=== PATIENT | female | born 1965 | race Caucasian/White ===

== ENCOUNTER 2024-10-01 09:55 | Outpatient (AMB) | payer OTHER, SELFPAY ==
--- NOTE | 2024-10-01 09:58 | A.OFFPC_ITS ---
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: No Accompanied by: Self / Same As Patient Allergies egg Allergy (Severe, Verified 10/01/24 10:13) GI problems sunflower seed Allergy (Severe, Verified 10/01/24 10:13) Anaphylaxis Medication List - Last Reconciled 10/01/24 by SOLOMON Mosqueda diltiazem HCl ER 120 mg PO DAILY Tobacco use date assessed: 10/01/24 Dental Screening Dental Screen Date: 10/01/24 Did you have a dental visit in the last 12 months?: Yes Did you have a dental problem in the last 6 months where you did not have access to dental care?: No Was dental information given to patient?: Patient has dentist HPI 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 Details Previous PCP: [facility] [place] 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 Last visit: about 8 years ago Last PE: same Specialist: No OBGYN: No, reports having a total hysterectomy, ovarian cysts with abnormal cells at the age on 38 Past medical history: IBS Medications: Family HX: Father copd, dm2, cad, mother pacemaker placed in 07/03 Problems: That she has multiple issues that she would like addressed Skin issues: red areas that on extremities that starts as a small red dot then p rogressed and scabbed-recurrently Patient reports that she has not gotten this looked at because she was without insurance for a while Reports going to to [facility] due to her blood pressure being elevated her blood pressure was 180/110 at home, heart rate was elevated and she was feeling dizzy for 5 weeks Reports that she finally became concerned and went to the emergency room Reports receiving 2 CTs, one with contrast and a MRI to r/o stroke She was given 4 L of iv fluids with positive and was started on Cardizem 120 mg daily for her heart rate Reports that she has not started this medication yet because her has been told her that she needed to figure out what is going on with her first before taking the medication Chronic diarrhea- Reports that she has been having this problem for over 20 years reports that this has gotten worse and she feels like she is having it everyday reports that she had a colonoscopy about 12 to 15 years and GI told her that she has IBS-reports that she was given medications that did not work and she had not follow up since Reports that she was without insurance for a long time The patient reports that she and her took a food intolerance test and results are pending. Reports that she has tried immodium without any effect, so she stopped using it (reports that this used to work in the past) Will order labs and do a stool culture Heart burn: reports having heart burn every day and it does not matter what she eats will prescribe the patient omeprazole and refer to GI [facility] Medical History (Updated 10/02/24 @ 21:00 by SOLOMON Mosqueda) Former smoker IBS (irritable bowel syndrome) Family History (Updated 10/02/24 @ 17:08 by SOLOMON Mosqueda) Father CAD (coronary artery disease) COPD (chronic obstructive pulmonary disease) Type 2 diabetes mellitus Mother Pacemaker Other Diabetes Heart failure Social History Housing: House Patient Tobacco Use Status: Former Tobacco user e-Cigarette/Vaping Use: Never Used Second Hand Smoke Exposure: No service: No Current occupational status: employed Current occupational exposures/hazards: No Cognitive needs: No Hearing needs: No Vision needs: No Questionnaire PHQ-9 Over the last 2 weeks, how often have you been bothered by any of the following problems? 1. Little interest or pleasure in doing things: not at all 2. Feeling down, depressed, or hopeless: not at all 3. Trouble falling or staying asleep, or sleeping too much: nearly every day 4. Feeling tired or having little energy: nearly every day 5. Poor appetite or overeating: nearly every day 6. Feeling bad about yourself - or that you are a failure or have let yourself or your family down: not at all 7. Trouble concentrating on things, such as reading the newspaper or watching television: more than half the days 8. Moving or speaking so slowly that other people could have noticed. Or the opposite - being so fidgety or restless that you have been moving around a lot more than usual: not at all 9. Thoughts that you would be better off or of hurting yourself in some way: not at all Total score: 11 Depression Screening Interpretation: Positive Depression Screening Done: Yes 90857 - PHQ-9 Billing: Yes Source: Developed by Drs. Daniele Bauman, Helene Vargas, Florian Shepard and colleagues, with an educational juan from [employer]. Thrive Questionnaire Date Thrive assessed: 10/01/24 I am a: Patient What is your living situation today?: I have a steady place to live Within the past 12 months, did the food you bought not last and you didn't have the money to get more?: Never true Within the past 12 months, did you worry whether your food would run out before you got money to buy more?: Never true Do you have trouble paying for medicines?: I choose not to answer this question Do you have trouble getting transportation to medical appointments?: No Do you have trouble paying your heating and electricity bill?: No Do you have trouble taking care of your child, family member or friend?: No Do you have trouble with day-to-day activities such as bathing, preparing meals, shopping, managing finances, etc.?: I choose not to answer this question Are you currently unemployed and looking for a job?: No Are you interested in more education?: No Please select the resources that you would like help with: None Currently or been in a relationship where the following occur: No concerns reported THRIVE Score: 0 AUDIT C Alcohol Use Questionnaire (AUDIT-C) 1. How often do you have a drink containing alcohol?: 2-3 times a week 2. How many drinks containing alcohol do you have on a typical day when you are drinking?: 1 or 2 3. How often do you have six or more drinks on one occasion?: Less than monthly Total Score: 4 RONAK-7 AMB Questionnaire RONAK-7 Date RONAK - 7 assessed: 10/01/24 Feeling nervous, anxious, or on edge: 3 = Nearly every day Not being able to stop or control worryin = Not at all Worrying too much about different things: 0 = Not at all Trouble relaxin = Several days Being so restless that it is hard to sit still: 0 = Not at all Becoming easily annoyed or irritable: 2 = More than half the days Feeling afraid as if something awful might happen: 0 = Not at all Total RONAK-7 score (0-4 normal; 5-9 mild; 10-14 moderate; 15-21 severe): 6 Source: Developed by Drs. Daniele Bauman, Helene Vargas, Florian Shepard and colleagues, with an educational juan from [employer]. RONAK-7 Assessment Billing RONAK-7 Assessment Tool: RONAK-7 Assessment 90673 Review of Systems Const Reports fatigue, Denies headache(s), Reports weakness and Reports weight loss Eyes Denies loss of vision ENT Denies vertigo, Denies dizziness, Denies headache(s) and Denies sore throat Card Denies chest pain, Denies leg edema, Denies lightheadedness and Reports other Resp Denies cough, Denies hemoptysis and Denies wheezing GI Denies abdominal pain, Denies melena, Denies constipation, Reports heartburn, Reports diarrhea, Reports nausea and Denies vomiting Denies urinary frequency, Denies dysuria and Denies urinary urgency Musc Denies arthralgias, Denies joint swelling, Denies numbness and Denies tingling Skin/Breast Reports lesions (small red dots progressing to scabbed over areas) Neuro Denies Abnormal speech present, Denies behavioral changes, Denies vertigo, Denies dizziness, Denies headache(s), Denies loss of vision, Denies memory loss, Denies numbness, Denies tingling and Reports weakness Psych Denies anxiety, Denies behavioral changes, Denies depression, Denies memory loss and Denies panic attacks Endo Reports fatigue Kayden/Lymph Denies easy bleeding and Denies easy bruising Aller/Immun Denies wheezing Physical exam (Primary Care) Vital Signs: Last Vital Signs Pulse 110 H 10/01/24 09:59 BP 130/86 10/01/24 09:59 Pulse Ox 96 10/01/24 09:59 Oxygen Delivery Method Room Air 10/01/24 09:59 BMI result Body Mass Index 18.2 Tobacco/Smoking Status: Tobacco use Status Tobacco use date assessed 10/01/24 10/01/24 10:09 Patient Tobacco Use Status Former Tobacco user 10/01/24 10:09 e-Cigarette/Vaping Use Never Used 10/01/24 10:09 PHQ-9: PHQ-9 Score PHQ-9: Total score 11 10/02/24 16:55 Depression Screening Interpretation: Positive Thrive Assessment: Date of Thrive Assessment Date Thrive assessed 10/01/24 10/01/24 10:09 Currently or been in a relationship where the following occur: No concerns reported Const General: healthy appearing, no acute distress, alert and awake Nutritional Appearance: well nourished Orientation/consciousness: oriented to person, oriented to place and oriented to time HENMT Ears: TM's normal bilaterally General nose exam: Normal nasal mucous membranes and turbinates present Eyes Conjunctivae: conjunctivae normal Sclerae: sclerae normal Pupils: Equal, round and reactive pupils present Neck Neck: Yes no lymphadenopathy and Yes no JVD Thyroid: Thyroid normal Carotids: no bruits Resp Effort & Inspection: normal respiratory effort and not tachypneic Auscultation: no crackles, no rales, no rhonchi and no wheezes Cardio Rate: regular rate Rhythm: regular rhythm Heart sounds: no murmurs and normal S1 and S2 GI Palpation (GI): Soft to palpation, nontender, no hepatomegaly and no splenomegaly Auscultation: normal bowel sounds General: Yes no CVA tenderness Back/Spine/Pelvis Back: no CVA tenderness Skin General skin exam: no rashes or lesions noted and dry skin Lesions: lesion noted (reddened scabbed over areas bilateral extremities ) Neuro General: oriented to person, oriented to place and oriented to time Cranial nerves: Yes Equal, round and reactive pupils present Speech: No Abnormal speech present Gait exam (Neuro): Normal gait present Motor exam (neuro): no tremor noted Extrem Right upper extremity: full ROM Left upper extremity: full ROM Right lower extremity: full ROM; no edema Left lower extremity: full ROM; no edema Psych Mental Status: mental status grossly normal Speech and movement: Normal speech and movement present Affect: normal affect Attitude: cooperative Thought process: Normal thought process present Coding Level of Care Code New Pt Level 4 (01149) Diagnoses Irritable bowel syndrome with diarrhea K58.0 Irritable bowel syndrome type: with diarrhea Heart burn R12 Racing heart beat R00.0 Skin lesion L98.9 Additional Codes RONAK-7 Assessment Billing - RONAK-7 Assessment Tool: RONAK-7 Assessment 77788 ([id number]) PHQ-9 - 67505 - PHQ-9 Billing: Yes ([id number]) Time Spent (min) 39 Assessment & Plan Assessment & Plan (1) IBS (irritable bowel syndrome): Code(s): K58.9 - Irritable bowel syndrome, unspecified Category: Medical Qualifiers: Irritable bowel syndrome type: with diarrhea Qualified Code(s): K58.0 - Irritable bowel syndrome with diarrhea Plan: The patient reports that she has been having diarrhea for like twenty years. Reports that she was worked up by GI in the past and was told that she has IBS. She was placed on medications that she said did not work and she just stopped following up. Labs and stool culture were ordered. Considering referring the patient back to GI. (2) Heart burn: Code(s): R12 - Heartburn Category: Medical Plan: The patient reports having heart burning everyday and it does not depending on what she eats. Will start the patient on omeprazole 40 mg daily and re-evaluate. The patient reports associated nausea as well, zofran 4 mg Q6H PRN. Reinforced dietary restriction. (3) Racing heart beat: Code(s): R00.0 - Tachycardia, unspecified Category: Medical Plan: The patient went to the hospital because her blood pressure and heart rate were elevated. The patient was given 4 L of iv fluids with positive effect. She was also started on Cardizem 120 mg daily that she has not taken as yet. Reports that her talked her out of taken the medication before knowing what is actually going on with her. Discussed with the patient that her heart rate is elevated today and this medication would help lowering her heart rate. She reports that she will give the medication a try. (4) Skin lesion: Code(s): L98.9 - Disorder of the skin and subcutaneous tissue, unspecified Category: Medical Plan: The patient has multiple erythematous small spots that progress into scabbed over areas. Reports that she has been dealing with this for awhile but was without health insurance. Will refer the patient to Dermatology. Orders: Orders Complete Blood Count Auto Diff 10/01/24 R00.0 - Tachycardia, unspecified, R41.89 - Other symptoms and signs involving cognitive functions and awareness, R 53.83 - Other fatigue, Z00.00 - Encounter for general adult medical examination without abnormal findings Lipid Panel 10/01/24 R00.0 - Tachycardia, unspecified, R41.89 - Other symptoms and signs involving cognitive functions and awareness, R53.83 - Other fatigue, Z00.00 - Encounter for general adult medical examination without abnormal findings TSH reflex Free T4 10/01/24 R00.0 - Tachycardia, unspecified, R41.89 - Other symptoms and signs involving cognitive functions and awareness, R53.83 - Other fatigue, Z00.00 - Encounter for general adult medical examination without abnormal findings UA CC w/rflx Micro + Cult 10/01/24 R00.0 - Tachycardia, unspecified, R41.89 - Other symptoms and signs involving cognitive functions and awareness, R53.83 - Other fatigue, Z00.00 - Encounter for general adult medical examination without abnormal findings Vitamin D 25-OH Total 10/01/24 R00.0 - Tachycardia, unspecified, R41.89 - Other symptoms and signs involving cognitive functions and awareness, R53.83 - Other fatigue, Z00.00 - Encounter for general adult medical examination without abnormal findings Vitamin B12 and Folate 10/01/24 R00.0 - Tachycardia, unspecified, R41.89 - Other symptoms and signs involving cognitive functions and awareness, R53.83 - Other fatigue, Z00.00 - Encounter for general adult medical examination without abnormal findings Hemoglobin A1c 10/01/24 R00.0 - Tachycardia, unspecified, R41.89 - Other symptoms and signs involving cognitive functions and awareness, R53.83 - Other fatigue, Z00.00 - Encounter for general adult medical examination without abnormal findings Lyme IgG/IgM w/reflex to WB 10/01/24 R00.0 - Tachycardia, unspecified, R41.89 - Other symptoms and signs involving cognitive functions and awareness, R53.83 - Other fatigue, Z00.00 - Encounter for general adult medical examination without abnormal findings Ova and Parasite 10/01/24 K52.9 - Noninfective gastroenteritis and colitis, unspecified Comprehensive [place]. Panel Fast 10/01/24 R00.0 - Tachycardia, unspecified, R41.89 - Other symptoms and signs involving cognitive functions and awareness, R53.83 - Other fatigue, Z00.00 - Encounter for general adult medical examination without abnormal findings Glucose Fasting 10/01/24 R00.0 - Tachycardia, unspecified, R41.89 - Other symptoms and signs involving cognitive functions and awareness, R53.83 - Other fatigue, Z00.00 - Encounter for general adult medical examination without abnormal findings Leukocytes Stool Qualitative 10/01/24 K52.9 - Noninfective gastroenteritis and colitis, unspecified Routine Culture w Gram Stain 10/01/24 K52.9 - Noninfective gastroenteritis and colitis, unspecified Referrals Dermatology Referral L98.9 - Disorder of the skin and subcutaneous tissue, unspecified Gastroenterology Referral K52.9 - Noninfective gastroenteritis and colitis, unspecified, K58.0 - Irritable bowel syndrome with diarrhea, R12 - Heartburn Medications: New omeprazole 40 mg PO DAILY 30 days 30 caps 3RF R12 - Heartburn ondansetron 4 mg PO Q6H 30 days PRN 60 tabs 2RF nausea and vomiting
[2024-10-01 09:59] VITALS: BP 130/86; PULSE 110; O2SAT 96; BMI 18.2
== END 2024-10-01 10:58 | disposition home or self-care (01) ==
LOC: HO.HMCH 09:56
DX: K58.0 Irritable bowel syndrome with diarrhea (principal); R12 Heartburn; R00.0 Tachycardia, unspecified; L98.9 Disorder of the skin and subcutaneous tissue, unspecified

== ENCOUNTER 2024-10-01 09:55 | Outpatient (REF) | payer OTHER, SELFPAY ==
[2024-10-01 11:49] LABS: MANUAL DIFF FLAG NO
[2024-10-01 12:28] LABS: Basophils Absolute Auto 0.1 X10*3/uL (0.0-0.2); Basophils Percent Auto 1.1 % (0-2); Eosinophils Percent Auto 0.2 % (0-4); Hematocrit 44.4 % (37.0-47.0); Imm Gran Abs Auto 0.02 X10*3/uL (0.00-0.03); Imm Gran Pct Auto 0.3 % (0.0-0.4); Lymphocytes Absolute Auto 1.1 X10*3/uL (1.2-4.9); Lymphocytes Percent Auto 16.2 % (20-40); Mean Corpuscular HGB Conc 33.8 g/dl (31.0-35.0); Mean Corpuscular Hemoglobin 31.1 pg (27.0-33.0); Mean Corpuscular Volume 92.1 fL (80.0-98.0); Mean Platelet Volume 9.6 fL (9.4-12.3); Monocytes Absolute Auto 0.6 X10*3/uL (0.1-1.2); Monocytes Percent Auto 9.7 % (2-11); Neutrophils Absolute Auto 4.8 x10*3/uL (2.0-8.3); Neutrophils Percent Auto 72.5 % (45-73); Platelet Count 284 X10*3/uL (160-400); Red Blood Count 4.82 X10*6/uL (4.20-5.50); Red Cell Distribution Width 12.3 % (11.0-16.0); White Blood Count 6.6 X10*3/uL (4.8-10.8)
[2024-10-01 12:35] LABS: Estimated Average Glucose 114 mg/dL; Hemoglobin A1c % 5.6 % (<6.0)
[2024-10-01 13:06] LABS: Alanine Aminotransferase 154 U/L (0-31); Albumin Level 4.5 g/dL (3.5-5.0); Alkaline Phosphatase 73 U/L (39-117); Anion Gap 19 (12-20); Aspartate Amino Transferase 220 U/L (5-31); Bilirubin Total 0.7 mg/dL (0.0-1.0); Blood Urea Nitrogen 5 mg/dL (9-16); Calcium 9.3 mg/dL (8.4-10.2); Carbon Dioxide 24 mmol/L (22-29); Chloride 95 mmol/L (96-108); Cholesterol 279 mg/dL (<200); Estimated Glomerular Filt Rate > 60; Glucose Fasting 95 mg/dL (60-99); HDL Cholesterol 101 mg/dL (>40); LDL Cholesterol Calculated 162 mg/dL (<100); Potassium 3.8 mmol/L (3.3-5.1); Sodium 134 mmol/L (135-145); Total Protein 8.1 g/dL (6.5-8.0); Triglycerides 81 mg/dL (<150)
[2024-10-01 13:14] LABS: TSH reflex Free T4 1.47 uIU/mL (0.32-4.0)
[2024-10-01 13:25] LABS: Folate 15.5 ng/mL (> or = 4.0); Vitamin B12 790 pg/mL (200-900)
[2024-10-01 13:37] LABS: Appearance Urine Clear; Color Urine Yellow; Glucose Urine UA Negative (Negative); Leukocyte Esterase Urine Negative (Negative); Nitrite Urine Negative (Negative); Urine Blood Negative (Negative); Urine Ketones 40 mg/dL (Negative); Urine Protein Negative (Neg-Trace)
[2024-10-01 17:26] LABS: Leukocytes Stool Qualitative NEGATIVE (NEGATIVE)
[2024-10-02 11:28] LABS: Lyme Abs Screen <0.90 index
== END 2024-10-01 09:56 | disposition home or self-care (01) ==
LOC: HO.LAB 09:55
DX: K58.0 Irritable bowel syndrome with diarrhea (principal); R12 Heartburn; R00.0 Tachycardia, unspecified; L98.9 Disorder of the skin and subcutaneous tissue, unspecified; Z00.00 Encounter for general adult medical examination without abnormal findings; R53.83 Other fatigue; R41.89 Other symptoms and signs involving cognitive functions and awareness; Z13.1 Encounter for screening for diabetes mellitus; Z13.6 Encounter for screening for cardiovascular disorders
CPT/HCPCS: 36415; 80053; 80061; 81003; 82306; 82607; 82746; 83036; 84443; 85025; 86617; 86618; 87177; 87209; 89055; 96127; 99202

== ENCOUNTER 2024-10-25 08:50 | Outpatient (REF) | payer OTHER, SELFPAY ==
--- NOTE | ~2024-10-25 | US_ITS ---
CLINICAL HISTORY: R74.8 - Abnormal levels of other serum enzymes --- Additional Notes or Special Inst ructions: Elevated liver enzymes, chronic diarrhea US abdomen complete Comparison: None Findings: The visualized pancreas is normal. The aorta and inferior vena cava are normal caliber. The appearance of the liver suggests fatty infiltration without focal lesion. There is no intrahepatic bile duct dilatation. The common duct is 6.6 mm in diameter. The gallbladder is normal. There is no sonographic Fong sign. The main portal vein is antegrade. The right kidney is 9.9 cm in length. The left kidney is 10.4 cm in length. The spleen is normal. No ascites. IMPRESSION: 1. Hepatic steatosis. This document has been electronically signed by: Tyler Mcfarland MD on 10/26/2024 08:44:49
== END 2024-10-25 08:51 | disposition home or self-care (01) ==
LOC: HO.HMGCX 08:50
DX: R74.8 Abnormal levels of other serum enzymes (principal); K52.9 Noninfective gastroenteritis and colitis, unspecified
CPT/HCPCS: 76700

== ENCOUNTER → 2024-10-25 08:52 | Outpatient (BNV) | payer OTHER, SELFPAY | PROVIDERS: Visit Provider Specialist | DX: R74.8 Abnormal levels of other serum enzymes (principal) | CPT/HCPCS: 76700 ==

== ENCOUNTER 2024-11-12 08:13 | Outpatient (AMB) | payer OTHER, SELFPAY ==
[2024-11-12 08:20] VITALS: BP 128/80; PULSE 104; O2SAT 98; BMI 18.3
--- NOTE | 2024-11-12 08:20 | A.OFFPC_ITS ---
Vital Signs 11/12/24 08:20 Height 5 ft 5 in Weight 110 lb 2 oz BMI 18.3 BP 128/80 Blood Pressure Location Lt brachial Position Sitting Pulse 104 H Pulse Source Pulse Oximeter Pulse Oximetry (%) 98 Oxygen Delivery Method Room Air Intake Visit Reasons: Annual Exam Assistant Administrator Required: No Accompanied by: Self / Same As Patient Allergies egg Allergy (Severe, Verified 11/12/24 08:21) GI problems sunflower seed Allergy (Severe, Verified 11/12/24 08:21) Anaphylaxis Tobacco use date assessed: 11/12/24 Dental Screening Dental Screen Date: 11/12/24 Did you have a dental visit in the last 12 months?: Yes Did you have a dental problem in the last 6 months where you did not have access to dental care?: No Was dental information given to patient?: Patient has dentist [facility] Medical History (Updated 10/02/24 @ 21:33 by SOLOMON Mosqueda) Former smoker IBS (irritable bowel syndrome) Family History Father CAD (coronary artery disease) COPD (chronic obstructive pulmonary disease) Type 2 diabetes mellitus Mother Pacemaker Other Diabetes Heart failure Social History Housing: House Patient Tobacco Use Status: Former Tobacco user e-Cigarette/Vaping Use: Never Used Second Hand Smoke Exposure: No service: No Current occupational status: employed Current occupational exposures/hazards: No Cognitive needs: No Hearing needs: No Vision needs: No Questionnaire PHQ-9 Over the last 2 weeks, how often have you been bothered by any of the following problems? 1. Little interest or pleasure in doing things: not at all 2. Feeling down, depressed, or hopeless: not at all 3. Trouble falling or staying asleep, or sleeping too much: not at all 4. Feeling tired or having little energy: nearly every day 5. Poor appetite or overeating: nearly every day 6. Feeling bad about yourself - or that you are a failure or have let yourself or your family down: not at all 7. Trouble concentrating on things, such as reading the newspaper or watching television: more than half the days 8. Moving or speaking so slowly that other people could have noticed. Or the opposite - being so fidgety or restless that you have been moving around a lot more than usual: not at all 9. Thoughts that you would be better off or of hurting yourself in some way: not at all Total score: 11 Depression Screening Interpretation: Positive Depression Screening Done: Yes Source: Developed by Drs. Daniele Bauman, Helene Vargas, Florian Shepard and colleagues, with an educational juan from [employer]. Thrive Questionnaire Date Thrive assessed: 11/12/24 I am a: Patient What is your living situation today?: I have a steady place to live Within the past 12 months, did the food you bought not last and you didn't have the money to get more?: Never true Within the past 12 months, did you worry whether your food would run out before you got money to buy more?: Never true Do you have trouble paying for medicines?: I choose not to answer this question Do you have trouble getting transportation to medical appointments?: No Do you have trouble paying your heating and electricity bill?: No Do you have trouble taking care of your child, family member or friend?: No Do you have trouble with day-to-day activities such as bathing, preparing meals, shopping, managing finances, etc.?: I choose not to answer this question Are you currently unemployed and looking for a job?: No Are you interested in more education?: No Please select the resources that you would like help with: None Currently or been in a relationship where the following occur: No concerns reported THRIVE Score: 0 AUDIT C Alcohol Use Questionnaire (AUDIT-C) 1. How often do you have a drink containing alcohol?: 2-3 times a week 2. How many drinks containing alcohol do you have on a typical day when you are drinking?: 1 or 2 3. How often do you have six or more drinks on one occasion?: Less than monthly Total Score: 4 RONAK-7 AMB Questionnaire RONAK-7 Date RONAK - 7 assessed: 11/12/24 Feeling nervous, anxious, or on edge: 3 = Nearly every day Not being able to stop or control worryin = Not at all Worrying too much about different things: 0 = Not at all Trouble relaxin = Several days Being so restless that it is hard to sit still: 0 = Not at all Becoming easily annoyed or irritable: 2 = More than half the days Feeling afraid as if something awful might happen: 0 = Not at all Total RONAK-7 score (0-4 normal; 5-9 mild; 10-14 moderate; 15-21 severe): 6 Source: Developed by Drs. Daniele Bauman, Helene Vargas, Florian Shepard and colleagues, with an educational juan from [employer]. RONAK-7 Assessment Billing RONAK-7 Assessment Tool: RONAK-7 Assessment 69130 Physical exam (Primary Care) Tobacco/Smoking Status: Tobacco use Status Tobacco use date assessed 10/01/24 10/01/24 10:09 Patient Tobacco Use Status Former Tobacco user 10/01/24 10:09 e-Cigarette/Vaping Use Never Used 10/01/24 10:09 Depression Screening Interpretation: Positive Thrive Assessment: Date of Thrive Assessment Date Thrive assessed 10/01/24 10/01/24 10:09 Currently or been in a relationship where the following occur: No concerns reported Coding Additional Codes RONAK-7 Assessment Billing - RONAK-7 Assessment Tool: RONAK-7 Assessment 68532 ([id number])
--- NOTE | 2024-11-12 08:28 | A.OFFPC_ITS ---
Vital Signs 11/12/24 08:20 Height 5 ft 5 in Weight 110 lb 2 oz BMI 18.3 BP 128/80 Blood Pressure Location Lt brachial Position Sitting Pulse 104 H Pulse Source Pulse Oximeter Pulse Oximetry (%) 98 Oxygen Delivery Method Room Air Intake Visit Reasons: Annual Exam Allergies egg Allergy (Severe, Verified 11/12/24 08:32) GI problems sunflower seed Allergy (Severe, Verified 11/12/24 08:32) Anaphylaxis Medication List - Last Reconciled 11/12/24 by SOLOMON Mosqueda diltiazem HCl ER 120 mg PO DAILY Tobacco use date assessed: 10/01/24 Dental Screening Dental Screen Date: 10/01/24 Did you have a dental visit in the last 12 months?: Yes Did you have a dental problem in the last 6 months where you did not have access to dental care?: No Was dental information given to patient?: Patient has dentist HPI Annual Exam HPI Details The patient is presenting for annual physical Dentist: July, up to date Eye: been a while 5/6 years, Snellen: Right: Left: Corrected vision: supposed to wear glasses due to astigmatism STI screening: Colonoscopy: due-will refer Pap Smer: PHQ-9: Flu: never had one due to egg allergy COVID: x2 moderna Tdap: 2020 Diet: removed most gluten products from diet Exercise: Active in the house chores Gluten intolerance: Patient reports not all gluten products out of her diet in all her GI symptoms subsided. Heart rate: On diltiazem, heart rate 104 today in office, blood pressure 128/80, reports coming to the office mixed her a little bit nervous. However, her condition seems to be well-controlled Hyponatremia: Sodium 134, discussed the causes with the patient. Excessive Alcohol intake, if he has any has been cutting back, we will recheck labs in the near future. Recurrent skin red patches: Referred to Derm in January GI: in January Elevated Liver enzymes: Decreasing alcohol consumption, US shows fatty liver, discussed with patient about lifestyle modification, diet and an exercise particularly we will make a difference while refraining or lowering alcohol intake and acetaminophen contents. Patient reports getting bit by 2 ticks but remove them quickly. Says she gets bit every year. We will add a Lyme panel so the patient labs to further evaluate. [facility] Medical History (Updated 05/05/25 @ 12:38 by SOLOMON Mosqueda) Former smoker IBS (irritable bowel syndrome) Family History Father CAD (coronary artery disease) COPD (chronic obstructive pulmonary disease) Type 2 diabetes mellitus Mother Pacemaker Other Diabetes Heart failure Social History Housing: House Patient Tobacco Use Status: Former Tobacco user e-Cigarette/Vaping Use: Never Used Second Hand Smoke Exposure: No service: No Current occupational status: employed Current occupational exposures/hazards: No Cognitive needs: No Hearing needs: No Vision needs: No Questionnaire PHQ-9 Over the last 2 weeks, how often have you been bothered by any of the following problems? 1. Little interest or pleasure in doing things: not at all Source: Developed by Drs. Daniele Bauman, Helene Vargas, Florian Shepard and colleagues, with an educational juan from [employer]. Thrive Questionnaire Date Thrive assessed: 10/01/24 I am a: Patient What is your living situation today?: I have a steady place to live Within the past 12 months, did the food you bought not last and you didn't have the money to get more?: Never true Within the past 12 months, did you worry whether your food would run out before you got money to buy more?: Never true Do you have trouble paying for medicines?: I choose not to answer this question Do you have trouble getting transportation to medical appointments?: No Do you have trouble paying your heating and electricity bill?: No Do you have trouble taking care of your child, family member or friend?: No Do you have trouble with day-to-day activities such as bathing, preparing meals, shopping, managing finances, etc.?: I choose not to answer this question Are you currently unemployed and looking for a job?: No Are you interested in more education?: No Please select the resources that you would like help with: None Currently or been in a relationship where the following occur: No concerns reported THRIVE Score: 0 RONAK-7 AMB Questionnaire RONAK-7 Date RONAK - 7 assessed: 10/01/24 Source: Developed by Helene Muñoz, Florian Shepard and colleagues, with an educational juan from [employer]. Review of Systems Const Denies headache(s) Eyes Denies loss of vision ENT Denies vertigo, Denies dizziness, Denies headache(s) and Denies sore throat Card Denies chest pain, Denies leg edema and Denies lightheadedness Resp Denies cough, Denies hemoptysis and Denies wheezing GI Denies abdominal pain, Denies melena, Denies constipation, Denies diarrhea and Denies vomiting Denies urinary frequency, Denies dysuria and Denies urinary urgency Musc Denies arthralgias, Denies joint swelling, Denies numbness and Denies tingling Neuro Denies Abnormal speech present, Denies behavioral changes, Denies vertigo, Denies dizziness, Denies headache(s), Denies loss of vision, Denies memory loss, Denies numbness and Denies tingling Psych Denies anxiety, Denies behavioral changes, Denies depression, Denies memory loss and Denies panic attacks Kayden/Lymph Denies easy bleeding and Denies easy bruising Aller/Immun Denies wheezing Physical exam (Primary Care) Vital Signs: Last Vital Signs Pulse 104 H 11/12/24 08:20 BP 128/80 11/12/24 08:20 Pulse Ox 98 11/12/24 08:20 Oxygen Delivery Method Room Air 11/12/24 08:20 BMI result Body Mass Index 18.3 Tobacco/Smoking Status: Tobacco use Status Tobacco use date assessed 10/01/24 11/12/24 08:35 Patient Tobacco Use Status Former Tobacco user 11/12/24 08:35 e-Cigarette/Vaping Use Never Used 11/12/24 08:35 PHQ-9: PHQ-9 Score PHQ-9: Total score 11 11/12/24 08:29 Thrive Assessment: Date of Thrive Assessment Date Thrive assessed 10/01/24 11/12/24 08:35 Currently or been in a relationship where the following occur: No concerns reported Const General: healthy appearing, no acute distress, alert and awake Nutritional Appearance: well nourished Orientation/consciousness: oriented to person, oriented to place and oriented to time HENMT Ears: TM's normal bilaterally General nose exam: Normal nasal mucous membranes and turbinates present Eyes Conjunctivae: conjunctivae normal Sclerae: sclerae normal Pupils: Equal, round and reactive pupils present Neck Neck: Yes no lymphadenopathy and Yes no JVD Thyroid: Thyroid normal Carotids: no bruits Resp Effort & Inspection: normal respiratory effort and not tachypneic Auscultation: no crackles, no rales, no rhonchi and no wheezes Cardio Rate: regular rate Rhythm: regular rhythm Heart sounds: no murmurs and normal S1 and S2 GI Palpation (GI): Soft to palpation, nontender, no hepatomegaly and no splenomegaly Auscultation: normal bowel sounds General: Yes no CVA tenderness Back/Spine/Pelvis Back: no CVA tenderness Skin General skin exam: no rashes or lesions noted and dry skin Neuro General: oriented to person, oriented to place and oriented to time Cranial nerves: Yes Equal, round and reactive pupils present Speech: No Abnormal speech present Gait exam (Neuro): Normal gait present Motor exam (neuro): no tremor noted Extrem Right upper extremity: full ROM Left upper extremity: full ROM Right lower extremity: full ROM; no edema Left lower extremity: full ROM; no edema Psych Mental Status: mental status grossly normal Speech and movement: Normal speech and movement present Affect: normal affect Attitude: cooperative Thought process: Normal thought process present Results Reviewed Results Reviewed: Laboratory Tests 10/01/24 10/01/24 11:42 11:47 WBC 6.6 RBC 4.82 Hgb 15.0 Hct 44.4 MCV 92.1 MCH 31.1 RDW 12.3 Plt Count 284 Sodium 134 L Potassium 3.8 Chloride 95 L Carbon Dioxide 24 Anion Gap 19 BUN 5 L Creatinine 0.69 Estimated GFR > 60 Fasting Glucose 95 Hemoglobin A1c % 5.6 AST 220 H ALT 154 H Alkaline Phosphatase 73 Total Protein 8.1 H Cholesterol 279 H LDL Cholesterol, Calc 162 H HDL Cholesterol 101 Vitamin B12 790 25-OH Vitamin D Total 123.0 Folate 15.5 TSH 1.47 Urine Color Yellow Urine Appearance Clear Urine pH 6.0 Ur Specific [place] 1.010 Urine Protein Negative Urine Glucose (UA) Negative Urine Ketones 40 Urine Blood Negative Urine Nitrite Negative Ur Leukocyte Esterase Negative Coding Level of Care Code Est Pt Prev Care 40-64y(15176) Diagnoses Annual physical exam Z00.00 Elevated liver enzymes R74.8 Chronic diarrhea K52.9 Irritable bowel syndrome with diarrhea K58.0 Irritable bowel syndrome type: with diarrhea Skin lesion L98.9 Heart burn R12 Racing heart beat R00.0 Brain fog R41.89 Fatigue, unspecified type R53.83 Fatigue type: unspecified Fatty liver K76.0 Time Spent (min) 39 Assessment & Plan Assessment & Plan (1) Annual physical exam: Code(s): Z00.00 - Encounter for general adult medical examination without abnormal findings Category: Medical (2) Elevated liver enzymes: Code(s): R74.8 - Abnormal levels of other serum enzymes Category: Medical (3) Chronic diarrhea: Code(s): K52.9 - Noninfective gastroenteritis and colitis, unspecified Category: Medical (4) IBS (irritable bowel syndrome): Code(s): K58.9 - Irritable bowel syndrome, unspecified Category: Medical Qualifiers: Irritable bowel syndrome type: with diarrhea Qualified Code(s): K58.0 - Irritable bowel syndrome with diarrhea (5) Skin lesion: Code(s): L98.9 - Disorder of the skin and subcutaneous tissue, unspecified Category: Medical (6) Heart burn: Code(s): R12 - Heartburn Category: Medical (7) Racing heart beat: Code(s): R00.0 - Tachycardia, unspecified Category: Medical (8) Brain fog: Code(s): R41.89 - Other symptoms and signs involving cognitive functions and awareness Category: Medical (9) Fatigue: Code(s): R53.83 - Other fatigue Category: Medical Qualifiers: Fatigue type: unspecified Qualified Code(s): R53.83 - Other fatigue (10) Fatty liver: Code(s): K76.0 - Fatty (change of) liver, not elsewhere classified Category: Medical Plan I provided the patient a comprehensive management plan focusing on her chronic medical issues and health maintenance needs. She should continue her gluten-free diet due to significant symptom reduction and practice moderation in alcohol consumption to support liver health. Routine monitoring of her liver enzymes and cholesterol will be conducted, with retesting scheduled for three months out to observe the impact of her lifestyle adjustments. Her frequent involvement with ticks needs ongoing vigilance despite the removals being under 24 hours. We will add a lyme panel to her upcoming blood work. For preventative screening, She had a Colonoscopy over 10 years ago, we will refer to GI. Eye exam recommended due to history of astigmatic concerns. She has never taken the flu vaccine due to her allergy to eggs even though the new recommendations approved flu vaccination for people with egg allergy, but she has completed her initial COVID vaccine doses. 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 Encouraged 30 minutes of uninterrupted cardio at least 3 times/week, aligning with her preferences for maintaining functionality. I recommended continued Debrox use as needed if dizziness recurs, based on symptom relief noted previously after using the debrox to clean her ears. Patient has upcoming appointment with Dermatology for recurrent skin lesions. She also has a appointment with GI for her previous stomach issues. Liver enzymes and high cholesterol high in the list of concerns with the patient. Ultrasound was completed recently that showed a fatty liver. Discussed with the patient about cutting down or refraining from alcohol intake. Patient reports that she has been doing well with this and only had 2 drinks on holiday. Reports that she will continue adjusting her diet to improve her cholesterol. Explained to patient that lower inner cholesterol will also improve her liver function. Patient was informed and verbally consented to the use of an ambient scribe for clinic note documentation during this visit. Orders: Orders Complete Blood Count Auto Diff 1 Month K52.9 - Noninfective gastroenteritis and colitis, unspecified, K58.0 - Irritable bowel syndrome with diarrhea, R53.83 - Other fatigue, R74.8 - Abnormal levels of other serum enzymes Lipid Panel 1 Month K52.9 - Noninfective gastroenteritis and colitis, unspecified, K58.0 - Irritable bowel syndrome with diarrhea, R53.83 - Other fatigue, R74.8 - Abnormal levels of other serum enzymes UA CC w/rflx Micro + Cult 1 Month K52.9 - Noninfective gastroenteritis and colitis, unspecified, K58.0 - Irritable bowel syndrome with diarrhea, R53.83 - Other fatigue, R74.8 - Abnormal levels of other serum enzymes Vitamin D 25-OH Total 1 Month K52.9 - Noninfective gastroenteritis and colitis, unspecified, K58.0 - Irritable bowel syndrome with diarrhea, R53.83 - Other fatigue, R74.8 - Abnormal levels of other serum enzymes TSH reflex Free T4 1 Month K52.9 - Noninfective gastroenteritis and colitis, unspecified, K58.0 - Irritable bowel syndrome with diarrhea, R53.83 - Other fatigue, R74.8 - Abnormal levels of other serum enzymes Glucose Fasting 1 Month K52.9 - Noninfective gastroenteritis and colitis, unspecified, K58.0 - Irritable bowel syndrome with diarrhea, R53.83 - Other fatigue, R74.8 - Abnormal levels of other serum enzymes Liver Panel 1 Month R74.8 - Abnormal levels of other serum enzymes Lyme IgG/IgM w/reflex to WB 1 Month R53.83 - Other fatigue, W57.XXXA - Bitten or stung by nonvenomous insect and other nonvenomous arthropods, initial encounter Referrals Gastroenterology Referral Z12.11 - Encounter for screening for malignant neoplasm of colon, Z12.12 - Encounter for screening for malignant neoplasm of rectum Patient Instructions: Patient to follow up in 3 months, complete ordered labs prior to appointment
== END 2024-11-12 09:02 | disposition home or self-care (01) ==
LOC: HO.HMCH 08:14
DX: Z00.00 Encounter for general adult medical examination without abnormal findings (principal); R74.8 Abnormal levels of other serum enzymes; K58.0 Irritable bowel syndrome with diarrhea; L98.9 Disorder of the skin and subcutaneous tissue, unspecified; R12 Heartburn; R00.0 Tachycardia, unspecified; R41.89 Other symptoms and signs involving cognitive functions and awareness; R53.83 Other fatigue; K76.0 Fatty (change of) liver, not elsewhere classified

== ENCOUNTER → 2024-11-12 08:13 | Outpatient (BNVA) | payer OTHER, SELFPAY | DX: Z00.00 Encounter for general adult medical examination without abnormal findings (principal); R74.8 Abnormal levels of other serum enzymes; K58.0 Irritable bowel syndrome with diarrhea; L98.9 Disorder of the skin and subcutaneous tissue, unspecified; R12 Heartburn; R00.0 Tachycardia, unspecified | CPT/HCPCS: 99396 ==

== ENCOUNTER 2025-01-29 10:03 | Outpatient (AMB) | payer OTHER, SELFPAY ==
--- NOTE | 2025-01-29 10:05 | A.OFFVIS_ITS ---
Vital Signs 01/29/25 10:16 Height 5 ft 5 in Weight 103 lb BMI 17.1 BP 140/100 H Blood Pressure Location Lt brachial Position Sitting Pulse 120 H Pulse Source Pulse Oximeter Pulse Oximetry (%) 100 Oxygen Delivery Method Room Air Intake Visit Reasons: IBS Noninf gastroenteritis & colitis heartburn Intake Note: New pt for initial eval of IBS + GERD CC; C.O. concern for possible celiac. Pt has cut out gluten from her diet over the last few weeks and has noticed a drastic improvement. Pt also reports having fairly significant, unintentional weight loss. Last colo + egd over 10 years ago. Puller Through Required: No Accompanied by: Self / Same As Patient Allergies egg Allergy (Severe, Verified 01/29/25 10:06) GI problems sunflower seed Allergy (Severe, Verified 01/29/25 10:06) Anaphylaxis HPI HPI IBS Noninf gastroenteritis & colitis heartburn: Details: 59 year old? female with past medical history of fatty liver, IBS, chronic diarrhea is here today for pre colonoscopy screening.? Patient was sent to us by her PCP.? Last colonoscopy over 10 years ago. Patient reports long history of IBS with predominantly diarrhea postprandially and abdominal pain. Patient reports that she was suffering in the very beginning of this year where she was seen in the ED. Patient then did testing where she was given a list of food that she can have and food that she must avoid. Since then patient has been doing much better. She is avoiding gluten completely. If she has even small amount of gluten she will have abdominal pain and loose stools.? ? Denies any personal or family history of gastrointestinal disease, colon polyps, or CRC.? Denies history of difficulty with sedation or anesthesia in the past.? Negative for history of sleep apnea.? Denies any history of cardiac, renal, pulmonary, or hepatic disease.?? No history of infectious? diseases like hepatitis A, B, C, HIV or tuberculosis.? Patient is not on any anticoagulation [facility] Medical History (Updated 01/29/25 @ 10:12 by JONO Villavicencio) Former smoker IBS (irritable bowel syndrome) Surgical History (Updated 01/29/25 @ 10:12 by JONO Villavicencio) Normal esophagogastroduodenoscopy (EGD) H/O colonoscopy Family History Father CAD (coronary artery disease) COPD (chronic obstructive pulmonary disease) Type 2 diabetes mellitus Mother Pacemaker Other Diabetes Heart failure Social History Housing: House Patient Tobacco Use Status: Former Tobacco user e-Cigarette/Vaping Use: Never Used Second Hand Smoke Exposure: No service: No Current occupational status: employed Current occupational exposures/hazards: No Cognitive needs: No Hearing needs: No Vision needs: No Review of Systems Const Denies weight gain and Denies weight loss ENT Reports no additional complaints, Denies dysphagia and Denies odynophagia Card Reports no additional complaints Resp Reports no additional complaints GI Reports abdominal pain, Denies belching, Denies melena, Reports bloating, Denies change in bowel habits, Denies dysphagia, Denies excessive flatus, Denies dyspepsia, Denies heartburn, Reports diarrhea, Denies loose stools, Denies obie sea, Denies odynophagia and Denies vomiting Reports no additional complaints Musc Reports no additional complaints Neuro Reports no additional complaints Psych Reports no additional complaints Endo Reports no additional complaints Physical Exam Vital Signs: Last Vital Signs Pulse 120 H 01/29/25 10:16 BP 140/100 H 01/29/25 10:16 Pulse Ox 100 01/29/25 10:16 Oxygen Delivery Method Room Air 01/29/25 10:16 BMI result Body Mass Index 17.1 Const General: healthy appearing, no acute distress and well developed Nutritional Appearance: well nourished Orientation/consciousness: patient oriented x3 Resp Effort & Inspection: normal respiratory effort, able to speak in complete sentences, no tracheal deviation and symmetric chest movement Auscultation: clear to auscultation bilaterally Cardio Rate: regular rate GI Inspection: Yes normal to inspection and No distended Palpation (GI): Soft to palpation, not firm, nontender and No hepatosplenomegaly present Auscultation: normal bowel sounds General: Yes no CVA tenderness Back/Spine/Pelvis Back: no CVA tenderness Skin General skin exam: elasticity normal, turgor normal and dry skin Neuro General: patient oriented x3 Psych Appearance: grossly normal Mental Status: mental status grossly normal Assessment & Plan Assessment & Plan (1) Elevated liver enzymes: Code(s): R74.8 - Abnormal levels of other serum enzymes Category: Medical (2) Chronic diarrhea: Code(s): K52.9 - Noninfective gastroenteritis and colitis, unspecified Category: Medical (3) IBS (irritable bowel syndrome): Code(s): K58.9 - Irritable bowel syndrome, unspecified Category: Medical Qualifiers: Irritable bowel syndrome type: with diarrhea Qualified Code(s): K58.0 - Irritable bowel syndrome with diarrhea (4) Encounter for colorectal cancer screening: Code(s): Z12.11 - Encounter for screening for malignant neoplasm of colon; Z12.12 - Encounter for screening for malignant neoplasm of rectum Category: Medical Plan Patient denies any cardiac or respiratory symptoms.? Patient will continue low FODMAP diet. Will continue avoiding gluten and lactose as she has in the past. Will check transglutaminase, fecal calprotectin to rule out IBD, vitamin-D, B12, folate, thyroid and liver panel. Denies any issues with anesthesia in the past.? Denies any history of sleep apnea.? No history infectious diseases in the past or present.? Not on any anticoagulation therapy.? No family or personal history of colon cancer or polyps.? Patient denies melena, hematochezia, unintentional weight loss or ribbon like stools.? Discussed at length the pre- procedure,? prep, diet & medications as well as what to expect prior, during and after the procedure.?? Stressed the importance of good bowel prep.? Recommended the use of Vaseline or Calmoseptine OTC & baby wipes with bowel movements to promote comfort.? ?Patient verbalizes understanding and agrees to plan of care.? She was given the opportunity to ask questions and all questions answered.? We will see her after the procedure.? Orders: Orders Transglutaminase Ab IgG Today R10.9 - Unspecified abdominal pain Transglutaminase IgA Today R10.9 - Unspecified abdominal pain Calprotectin, Fecal Today R15.9 - Full incontinence of feces Lipase Today R10.9 - Unspecified abdominal pain Vitamin D 25-OH (D2 and D3) Today E55.9 - Vitamin D deficiency, unspecified Vitamin B12 and Folate Today R19.7 - Diarrhea, unspecified TSH reflex Free T4 Today K59.00 - Constipation, unspecified Liver Panel Today R74.01 - Elevation of levels of liver transaminase levels Medications: New bisacodyl (Dulcolax (bisacodyl)) take 4 tabs at noon the day before your colonoscopy 20 mg (4 x 5 mg) PO ONCE 4 tabs 0RF constipation 1 day Z12.11 - Encounter for screening for malignant neoplasm of colon polyethylene glycol 3350 (Miralax) As directed by gastroenterology department at [facility] 238 grams PO ONCE 238 grams 0RF Z12.11 - Encounter for screening for malignant neoplasm of colon Coding Level of Care Code New Pt Level 4 (21552) Diagnoses Elevated liver enzymes R74.8 Chronic diarrhea K52.9 Irritable bowel syndrome with diarrhea K58.0 Irritable bowel syndrome type: with diarrhea Encounter for colorectal cancer screening Z12.11; Z12.12 Time Spent (min) 50 Comment 35 minutes spent with patient and additional 15 minutes spent reviewing her records
[2025-01-29 10:16] VITALS: BP 140/100; PULSE 120; O2SAT 100; BMI 17.1
== END 2025-01-29 11:18 | disposition home or self-care (01) ==
LOC: HO.HGI 10:04
PROVIDERS: Visit Provider Nurse Practitioner Family
DX: R74.01 Elevation of levels of liver transaminase levels (principal); K52.9 Noninfective gastroenteritis and colitis, unspecified
CPT/HCPCS: 99204

== ENCOUNTER → 2025-01-29 10:03 | Outpatient (BNVA) | payer OTHER, SELFPAY | PROVIDERS: Visit Provider Nurse Practitioner Family | DX: Z12.11 Encounter for screening for malignant neoplasm of colon (principal); Z12.12 Encounter for screening for malignant neoplasm of rectum; K58.0 Irritable bowel syndrome with diarrhea; R74.8 Abnormal levels of other serum enzymes | CPT/HCPCS: 99202 ==

== ENCOUNTER 2025-02-13 08:19 | Outpatient (AMB) | payer OTHER, SELFPAY ==
--- NOTE | 2025-02-13 08:30 | MHC.PC.OV ---
Vital Signs 02/13/25 08:42 Height 5 ft 5 in Weight 107 lb 8 oz BMI 17.9 BP 120/60 Blood Pressure Location Lt brachial Position Sitting Pulse 89 Pulse Source Pulse Oximeter Temp 97.3 F Temp Source Temporal Artery Scan Pulse Oximetry (%) 97 Oxygen Delivery Method Room Air Intake Visit Reasons: elevated liver enzymes/HLD Intake Note: Patient is here to follow up on HLD, Elevated liver enzmes. Manager Sales And Marketing: Not Required per policy Accompanied by: Self / Same As Patient Allergies egg Allergy (Severe, Verified 02/13/25 08:58) GI problems sunflower seed Allergy (Severe, Verified 02/13/25 08:58) Anaphylaxis Medication List - Last Reconciled 02/13/25 by SOLOMON Mosqueda bisacodyl (Dulcolax (bisacodyl)) 20 mg (4 x 5 mg) PO ONCE 1 day diltiazem HCl ER 120 mg PO DAILY polyethylene glycol 3350 (Miralax) 238 grams PO ONCE Tobacco use date assessed: 02/13/25 Dental Screening Dental Screen Date: 10/01/24 HPI elevated liver enzymes/HLD HPI Details The patient is a 59 year old female presenting for follow up appointment. Patient had blood work done on 10/01/2024. Showed mild hyponatremia with sodium at 01:34, liver enzymes elevated AST 220, ALT 154. The patient had an abdominal ultrasound on :2024 that showed hepatic steatosis. The patient total cholesterol was 279, LDL 162, HDL 101. She was encouraged to make dietary changes. Labs were ordered for the patient to repeat for this follow up appointment. The patient has not completed a repeated labs as yet. The patient was seen by GI on 01/29/25. Her last colonoscopy was over 10 years ago. She has a history IBS, particularly chronic diarrhea. She had made dietary changes and had seen significant improvements. Continue FODMAP diet. Patient we will complete labs as soon as she can. Denies chest pain, SOB, heart palpitation or dizziness. Denies abdominal pain or change in bowel habits. Reports that she had heartburn about twice due to eating from the food truck. Denies any urinary symptoms. [facility] Medical History (Updated 02/13/25 @ 09:04 by SOLOMON Mosqueda) Racing heart beat Former smoker IBS (irritable bowel syndrome) Surgical History Normal esophagogastroduodenoscopy (EGD) H/O colonoscopy Family History Father CAD (coronary artery disease) COPD (chronic obstructive pulmonary disease) Type 2 diabetes mellitus Mother Pacemaker Other Diabetes Heart failure Social History Housing: House Alcohol intake: current Alcohol intake frequency: a few times a week Patient Tobacco Use Status: Former Tobacco user e-Cigarette/Vaping Use: Never Used Second Hand Smoke Exposure: Yes service: No Current occupational status: employed Current occupational exposures/hazards: No Cognitive needs: No Hearing needs: No Vision needs: No Questionnaire PHQ-9 Over the last 2 weeks, how often have you been bothered by any of the following problems? 1. Little interest or pleasure in doing things: not at all 2. Feeling down, depressed, or hopeless: not at all Source: Developed by Drs. Daniele Bauman, Helene Vargas, Florian Shepard and colleagues, with an educational juan from [employer]. Thrive Questionnaire Date Thrive assessed: 10/01/24 I am a: Patient What is your living situation today?: I have a steady place to live Within the past 12 months, did the food you bought not last and you didn't have the money to get more?: Never true Within the past 12 months, did you worry whether your food would run out before you got money to buy more?: Never true Do you have trouble paying for medicines?: I choose not to answer this question Do you have trouble getting transportation to medical appointments?: No Do you have trouble paying your heating and electricity bill?: No Do you have trouble taking care of your child, family member or friend?: No Do you have trouble with day-to-day activities such as bathing, preparing meals, shopping, managing finances, etc.?: I choose not to answer this question Are you currently unemployed and looking for a job?: No Are you interested in more education?: No Please select the resources that you would like help with: None Currently or been in a relationship where the following occur: No concerns reported THRIVE Score: 0 RONAK-7 AMB Questionnaire RONAK-7 Date RONAK - 7 assessed: 10/01/24 Source: Developed by Drs. Daniele Bauman, Helene Vargas, Florian Shepard and colleagues, with an educational juan from [employer]. Review of Systems Const Denies body aches, Denies chills, Denies fever(s), Denies headache(s) and Denies poor appetite Eyes Reports no additional complaints ENT Denies dysphagia, Denies dizziness, Denies headache(s) and Denies odynophagia Card Denies chest pain, Denies syncope, Denies edema, Denies irregular heart rhythm, Denies lightheadedness and Denies dyspnea Resp Denies cough and Denies dyspnea GI Denies abdominal pain, Denies constipation, Denies dysphagia, Reports heartburn (2 times since last visit due to dietary choices), Denies diarrhea, Denies nausea, Denies odynophagia and Denies vomiting Reports no additional complaints Musc Reports no additional complaints and Denies abnormal gait Skin/Breast Reports system reviewed and no additional complaints, except as documented Neuro Denies abnormal gait, Denies dizziness, Denies syncope and Denies headache(s) Psych Reports no additional complaints Physical exam (Primary Care) Vital Signs: Last Vital Signs Temp 97.3 F 02/13/25 08:42 Pulse 89 02/13/25 08:42 BP 120/60 02/13/25 08:42 Pulse Ox 97 02/13/25 08:42 Oxygen Delivery Method Room Air 02/13/25 08:42 BMI result Body Mass Index 17.9 Tobacco/Smoking Status: Tobacco use Status Tobacco use date assessed 02/13/25 02/13/25 08:44 Patient Tobacco Use Status Former Tobacco user 02/13/25 08:47 e-Cigarette/Vaping Use Never Used 02/13/25 08:47 Thrive Assessment: Date of Thrive Assessment Date Thrive assessed 10/01/24 02/13/25 08:30 Currently or been in a relationship where the following occur: No concerns reported Const General: cooperative, healthy appearing, comfortable and no acute distress Orientation/consciousness: patient oriented x3 HENMT Head: Yes normocephalic Ears: hearing grossly normal bilaterally General nose exam: Normal external nose present Eyes General: appearance normal, both eyes and all related structures Conjunctivae: conjunctivae normal Neck Neck: Yes full ROM and Yes no lymphadenopathy Resp Effort & Inspection: normal respiratory effort Auscultation: clear to auscultation bilaterally, no crackles, no rales, no rhonchi and no wheezes Cardio Rate: regular rate Rhythm: regular rhythm Heart sounds: S1 normal heart sound present, S2 normal heart sound present and no murmurs GI Palpation (GI): Soft to palpation and nontender Auscultation: normal bowel sounds General: Yes no CVA tenderness Back/Spine/Pelvis Back: no CVA tenderness Skin General skin exam: no rashes or lesions noted Neuro General: patient oriented x3 Gait exam (Neuro): Normal gait present Extrem General: Yes normal to inspection, Yes full ROM and No edema Psych Affect: normal affect Attitude: cooperative Insight: Good insight present (Psych) Judgement: Good judgement present (Psych) Coding Level of Care Code Est Pt Level 3 (83024) Diagnoses Heart burn R12 Elevated liver enzymes R74.8 Fatty liver K76.0 Chronic diarrhea K52.9 Irritable bowel syndrome with diarrhea K58.0 Irritable bowel syndrome type: with diarrhea Racing heart beat R00.0 Time Spent (min) 36 Assessment & Plan Assessment & Plan (1) Heart burn: Code(s): R12 - Heartburn Category: Medical Plan: Had 2 episodes since last visit. Reports that she ate from a food truck that claimed that it was gluten free. Reinforced dietary restriction Continue omeprazole OTC (2) Elevated liver enzymes: Code(s): R74.8 - Abnormal levels of other serum enzymes Category: Medical Plan: Elevated liver enzymes Avoid alcohol or Tylenol containing drugs Encouraged a low-fat diet (3) Fatty liver: Code(s): K76.0 - Fatty (change of) liver, not elsewhere classified Category: Medical Plan: Same as above (4) Chronic diarrhea: Code(s): K52.9 - Noninfective gastroenteritis and colitis, unspecified Category: Medical Plan: Improved. Patient made dietary changes and has been doing much better (5) IBS (irritable bowel syndrome): Code(s): K58.9 - Irritable bowel syndrome, unspecified Category: Medical Qualifiers: Irritable bowel syndrome type: with diarrhea Qualified Code(s): K58.0 - Irritable bowel syndrome with diarrhea Plan: Continue FODMAP diet Follow up with GI as scheduled (6) Racing heart beat: Code(s): R00.0 - Tachycardia, unspecified Category: Medical Plan: Stable. Heart rate 89 in office today Continue diltiazem HCI ER 120 mg daily
[2025-02-13 08:42] VITALS: BP 120/60; PULSE 89; TEMP 36.3; O2SAT 97; BMI 17.9
== END 2025-02-13 08:59 | disposition home or self-care (01) ==
LOC: HO.HMCH 08:20
DX: R12 Heartburn (principal); R74.8 Abnormal levels of other serum enzymes; K58.0 Irritable bowel syndrome with diarrhea; R00.0 Tachycardia, unspecified

== ENCOUNTER → 2025-02-13 08:19 | Outpatient (BNVA) | payer OTHER, SELFPAY | DX: E87.1 Hypo-osmolality and hyponatremia (principal); K76.0 Fatty (change of) liver, not elsewhere classified; R12 Heartburn; R74.8 Abnormal levels of other serum enzymes; K58.0 Irritable bowel syndrome with diarrhea; R00.0 Tachycardia, unspecified | CPT/HCPCS: 99212 ==

== ENCOUNTER 2025-03-21 08:35 | Day surgery (SDC) | payer OTHER, SELFPAY ==
[2025-03-19 15:56] VITALS: BMI 17.1
[2025-03-21] MEDS: Lactated Ringers 1,000 ML 100 ML IVCONT (08:59)
[2025-03-21 09:00] VITALS: BP 114/80; PULSE 84; RESP 16; TEMP 36.5; O2SAT 100
--- NOTE | 2025-03-21 09:06 | P.CONAN_ITS ---
Documented by User: Ruth Farnsworth NP 03/19/25 15:06 HPI - Anesthesia Eval Consult details Narrative: 59yo F for Upper Endoscopy and Colonoscopy PMFSH Active Problems Active Problems: All Active Problems Encounter for colorectal cancer screening (Acute) Tick bite (Acute) Fatty liver (Acute) Elevated liver enzymes (Acute) Skin lesion (Acute) IBS (irritable bowel syndrome) (Acute) Chronic diarrhea (Acute) Heart burn (Acute) Racing heart beat (Acute) Brain fog (Acute) Fatigue (Acute) Annual physical exam (Acute) Past Medical History Medical History (Updated 02/13/25 @ 09:04 by SOLOMON Mosqueda) Racing heart beat Former smoker IBS (irritable bowel syndrome) Family History Family History Father CAD (coronary artery disease) COPD (chronic obstructive pulmonary disease) Type 2 diabetes mellitus Mother Pacemaker Other Diabetes Heart failure Surgical History Surgical History Normal esophagogastroduodenoscopy (EGD) H/O colonoscopy Social History Social History Housing: House Alcohol intake: current Alcohol intake frequency: a few times a week Patient Tobacco Use Status: Former Tobacco user e-Cigarette/Vaping Use: Never Used Second Hand Smoke Exposure: Yes Use of substances other than those prescribed or required for medical reasons: Yes Advance Directives: No Advance Directives Information Provided: Yes service: No Current occupational status: employed Current occupational exposures/hazards: No Cognitive needs: No Hearing needs: No Vision needs: No Meds Allergies Allergy/AdvReac Type Severity Reaction Status Date / Time egg Allergy Severe GI problems Verified 02/13/25 08:58 sunflower seed Allergy Severe Anaphylaxis Verified 02/13/25 08:58 Assessment and Plan Assessment Anesthesia Assessment: Chart Reviewed Documented by User: Sondra Silva DO 03/21/25 09:07 [facility] Past Medical History Medical History (Updated 02/13/25 @ 09:04 by SOLOMON Mosqueda) Racing heart beat Former smoker IBS (irritable bowel syndrome) Family History Family History Father CAD (coronary artery disease) COPD (chronic obstructive pulmonary disease) Type 2 diabetes mellitus Mother Pacemaker Other Diabetes Heart failure Family history of problems with anesthesia: No Surgical History Surgical History Normal esophagogastroduodenoscopy (EGD) H/O colonoscopy History of Problems with Anesthesia: No Social History Social History Housing: House Alcohol intake: current Alcohol intake frequency: a few times a week Patient Tobacco Use Status: Former Tobacco user e-Cigarette/Vaping Use: Never Used Second Hand Smoke Exposure: Yes Use of substances other than those prescribed or required for medical reasons: Yes Advance Directives: No Advance Directives Information Provided: Yes service: No Current occupational status: employed Current occupational exposures/hazards: No Cognitive needs: No Hearing needs: No Vision needs: No Meds Allergies Allergy/AdvReac Type Severity Reaction Status Date / Time egg Allergy Severe GI problems Verified 02/13/25 08:58 sunflower seed Allergy Severe Anaphylaxis Verified 02/13/25 08:58 Exam Exam Date and Time: 03/21/25 0906 Height,Weight and Vital Signs: Height 5 ft 5 in Weight 46.72 kg Vital Signs Temperature 97.7 F 03/21/25 09:00 Pulse Rate 84 03/21/25 09:00 Respiratory Rate 16 03/21/25 09:00 Blood Pressure 114/80 03/21/25 09:00 Pulse Oximetry 100 03/21/25 09:00 Oxygen Delivery Method Room Air 03/21/25 09:00 Temperature 97.7 F 03/21/25 09:00 Pulse Rate 84 03/21/25 09:00 Respiratory Rate 16 03/21/25 09:00 Blood Pressure 114/80 03/21/25 09:00 Pulse Oximetry 100 03/21/25 09:00 Oxygen Delivery Method Room Air 03/21/25 09:00 Airway Mallampati Class: I TM Dist: >3cm Neck ROM: Full Loose/Missing/Broken Teeth: No (patient denies any loose or broken teeth) Heart: S1S2 Lungs: CTAB Assessment and Plan Assessment Anesthesia Assessment: Anesthesia Plan Discussed and Chart Reviewed Final Anesthetic Review Family History of Problems with Anesthesia: No History of Problems with Anesthesia: No NPO: Yes ASA Class: II Final Preanesthetic Review: No Changes in Pt Med Stat, Meds/Allgs Chart Reviewed, Consent Obtained/Reviewed and Anes Risks/Benef Reviewed Patient Risk: Low Procedure Risk: Low Anesthetic Plan Anesthetic Plan: MAC: and Agree w/ Assess. and Plan Disposition: Standard PACU
--- NOTE | 2025-03-21 09:52 | MHC.SHP ---
Pre-Procedural Eval Section A - 24 Hr Update-Section A only Date of Service: 03/21/25 Section B - Complete if H&P > 30 days Chief Complaint: Epigastric pain,screening Relevant Family History (Specify if Yes): No Relevant Social History: None Present Medications: see Short Stay Collaborative assessment Medical History: Significant History (Former smoker IBS (irritable bowel syndrome)) History of Previous Operations: Relevant previous surgery/procedure and date(s) (Normal esophagogastroduodenoscopy (EGD) H/O colonoscopy) Allergies: Allergies Allergy/AdvReac Type Severity Reaction Status Date / Time egg Allergy Severe GI problems Verified 02/13/25 08:58 sunflower seed Allergy Severe Anaphylaxis Verified 02/13/25 08:58 Review of Systems Sugical H&P ROS: Negative: Constitution, Cardiovascular, Respiratory, Neurological, Psychiatric, Hem-Onc, Allergic/Immunologic, Gastrointestinal, Genitourinary, Musculoskeletal, Integumentary, Endocrine and Eyes/Ears/Nose/Throat Exam Surgical H&P Exam: Normal: HEENT, Normal: Heart, Normal: Lungs, Normal: Extremities, Normal: Abdomen, Normal: Skin and Normal: Neurological Plan Diagnosis/Plan: Unchanged I have reviewed the history and physical and performed a pertinent physical examination on my patient. No changes have occurred unless specified. Time Spent With Patient Time: Total time managing care of this patient today ____ minutes.
--- NOTE | 2025-03-21 10:42 | P.OPN-COLO_ITS ---
Colonoscopy Operative Note Operative Note Date of Service: 03/21/25 Narrative: Operative Information Procedure Description: EGD, Colonoscopy Indication: diarrhea Anesthesia: MAC FLEXIBLE TRANSORAL UPPER GASTROINTESTINAL ENDOSCOPY AND COLONOSCOPY PROCEDURE NOTE UPPER ENDOSCOPY Consent: Indications for the procedure and potential complications of bleeding, perforation, reaction to medications and missed diagnosis were discussed with the patient and informed consent was obtained. Instrument: Olympus GIF H 190 J mid size upper endoscope Monitoring: Vital signs and clinical assessment, continuous EKG monitoring, Pulse oximetry, Carbon Dioxide monitoring and blood pressure monitoring were done throughout the procedure. Procedure: The patient was placed in the left lateral decubitis position and pre-procedure medications were administered and a bite block was placed. The endoscope was inserted into the mouth and advanced under direct vision to the third part of duodenum. A careful inspection was made as the upper endoscope was withdrawn including a retroflexed examination of the proximal stomach; Findings and interventions are described below. Findings: Larynx:normal Esophagus: GE junction at 37 cm, diaphragm hiatus at 40 cm, consistent with 3 cm hiatal hernia, schatzki ring noted as well, mild esophagitis Stomach: Patchy erythema. Biopsies were obtained. Grade 2 flap valve on retroflexed examination of the cardia. 6-7 mm sessile polyp noted in pre antral area and removed with cold snare Duodenum: patchy bulbar duodenitis, bx taken Intervention: Biopsies as noted above, COLONOSCOPY Instrument: Olympus variable stiffness pediatric scope 190L Colonoscopy Monitoring: Vital signs and clinical assessment, continuous EKG monitoring, Pulse oximetry, Carbon Dioxide monitoring and blood pressure monitoring were done throughout the procedure. Colon withdrawal time was 15 minutes. Procedure: The patient was placed in the left lateral decubitis position and pre-procedure medications were administered. After a digital rectal examination of the ano-rectum, the video colonoscope was inserted into the rectum and advanced through the colon to the cecum/TI. The colonoscope was slowly withdrawn in a retrograde panoramic fashion and the colon mucosa was carefully examined including a retroflexed view of the rectum. Findings and interventions are described below. Procedure Difficulty:moderate Findings: Terminal Ileum- slightly atrophic appearing, bx taken Random bx taken from right and left colon Cecum:normal Ascending Colon: 4-5 mm sessile polyp removed with cold forceps Transverse Colon -normal Descending Colon:normal Sigmoid Colon: normal Rectum: Retroflexion with small internal hemorrhoids, grade I, mild erythema in rectum, 6-8 mm sessile polyp removed with cold sanre Anorectum - normal Colon preparation: [place] Bowel Preparation Scale Right colon; 2 Transverse colon: 2 Left colon; 2 (0 = Unprepared colon segment with mucosa not seen due to solid stool that cannot be cleared. 1 = Portion of mucosa of the colon segment seen, but other areas of the colon segment not well seen due to staining, residual stool and/or opaque liquid. 2 = Minor amount of residual staining, small fragments of stool and/or opaque liquid, but mucosa of colon segment seen well. 3 = Entire mucosa of colon segment seen well with no residual staining, small fragments of stool or opaque liquid) Impression and Post Procedure Diagnosis: Endoscopy Findings: hiatal hernia schatzki ring gastritis esophagitis duodenitis Colonoscopy Findings: colon polyps x 2 internal hemorrhoids Plan: Await Pathology results Repeat Colonoscopy in 5 years if adenomatous polyps, 10 yrs if hyperplastic or earlier if clinically indicated High fiber diet leaflet avoid straining at stool, epsom salts and sitz bath, anusol supps or cream if H pylori pos then treat await disaccharidases tissue testing as well Above findings were reviewed with the patient and relevant handouts were provided if indicated.
[2025-03-21 10:45] VITALS: BP 128/80; PULSE 79; RESP 16; TEMP 36.3; O2SAT 100
[2025-03-21 11:00] VITALS: BP 125/86; PULSE 79; RESP 16; TEMP 36.3; O2SAT 100
[2025-03-21 11:54] LABS: CDiff Gene PCR NEGATIVE (Negative)
[2025-03-21 12:23] LABS: E. coli EAEC Not Detected (Not Detect.); E. coli EPEC Not Detected (Not Detect.); E. coli ETEC Not Detected (Not Detect.); E. coli STEC Not Detected (Not Detect.); Shigella sp./EIEC Not Detected (Not Detect.)
[2025-03-27 00:58] LABS: Lactoferrin, Fecal, Quant. <6.25 mcg/mL (<7.25)
[2025-03-29 00:24] LABS: Lactase 14.2 (15.0-45.5); Maltase 200.2 (100.0-224.4); Palatinase 19.8 (5.0-26.3); Sucrase 63.9 (25.0-69.9)
== END 2025-03-21 11:51 | disposition home or self-care (01) ==
PROVIDERS: Visit Provider Internal Medicine Gastroenterology
PROC: (CPT 45385; principal; 2025-03-21 10:40)
DX: Z12.11 Encounter for screening for malignant neoplasm of colon (principal); K62.1 Rectal polyp; K64.0 First degree hemorrhoids; R10.13 Epigastric pain; K22.2 Esophageal obstruction; K20.80 Other esophagitis without bleeding; K29.80 Duodenitis without bleeding; K31.7 Polyp of stomach and duodenum; K44.9 Diaphragmatic hernia without obstruction or gangrene; Z87.891 Personal history of nicotine dependence
CPT/HCPCS: 45385; 45380; 43251; 43239; 36415; 82657; 83631; 87493; 87507; 88305; 88313; 88342; J2704

== ENCOUNTER → 2025-03-21 08:35 | Outpatient (BNV) | payer OTHER, SELFPAY | PROVIDERS: Visit Provider Internal Medicine Gastroenterology | DX: R19.7 Diarrhea, unspecified (principal); D12.2 Benign neoplasm of ascending colon; K64.0 First degree hemorrhoids; D12.8 Benign neoplasm of rectum; R10.13 Epigastric pain; K22.2 Esophageal obstruction; K20.90 Esophagitis, unspecified without bleeding; K29.70 Gastritis, unspecified, without bleeding; K29.80 Duodenitis without bleeding; K31.7 Polyp of stomach and duodenum | CPT/HCPCS: 43239; 43251; 45380; 45385 ==

== ENCOUNTER 2025-05-15 07:40 | Outpatient (REF) | payer OTHER, SELFPAY ==
[2025-05-15 08:33] LABS: Hematocrit 44.5 % (37.0-47.0); Hemoglobin 14.5 g/dl (12.0-16.0); Imm Gran Abs Auto 0.02 X10*3/uL (0.00-0.03); Imm Gran Pct Auto 0.4 % (0.0-0.4); Lymphocytes Absolute Auto 2.0 X10*3/uL (1.2-4.9); MANUAL DIFF FLAG SCAN; Mean Corpuscular HGB Conc 32.6 g/dl (31.0-35.0); Mean Corpuscular Hemoglobin 30.3 pg (27.0-33.0); Mean Corpuscular Volume 92.9 fL (80.0-98.0); NRBC Abs Auto 0.000 X10*3/uL (0.0-0.012); NRBC Pct Auto 0.0 /100WBC (0.0-0.2); PLT CLUMP 1; Red Blood Count 4.79 X10*6/uL (4.20-5.50); SCAN SMEAR FLAG 1
[2025-05-15 08:49] LABS: Appearance Urine Clear; Glucose Urine UA Negative (Negative); PH 6.0 (5.0-9.0); Specific Gravity - Urine 1.020 (1.005-1.025); UMIC TRIGGER UACC YES
[2025-05-15 08:51] LABS: UACC Culture Trigger YES
[2025-05-15 09:01] LABS: Platelet Count 172 X10*3/uL (160-400); White Blood Count 5.0 X10*3/uL (4.8-10.8)
[2025-05-15 09:28] LABS: Lipase 46 U/L (8-78)
[2025-05-15 09:57] LABS: Alanine Aminotransferase 20 U/L (0-31); Albumin Level 4.3 g/dL (3.5-5.0); Alkaline Phosphatase 62 U/L (39-117); Aspartate Amino Transferase 31 U/L (5-31); Total Protein 7.9 g/dL (6.5-8.0)
[2025-05-15 10:02] LABS: Folate 11.9 ng/mL (> or = 4.0); Vitamin B12 559 pg/mL (200-900)
[2025-05-16 06:03] LABS: Lyme Abs Screen <0.90 index
[2025-05-16 16:14] LABS: Transglutaminase Ab IgG <1.0 U/mL
[2025-05-16 16:53] LABS: Immunoglobulin A 773 mg/dL (47-310)
[2025-05-22 13:58] LABS: Vitamin D 25-OH, D2 <4 ng/mL; Vitamin D 25-OH, D3 78 ng/mL; Vitamin D 25-OH, Total 78 ng/mL (30-100)
== END 2025-05-15 07:41 | disposition home or self-care (01) ==
LOC: HO.LAB 07:40
PROVIDERS: Nurse Practitioner Family
DX: Z00.00 Encounter for general adult medical examination without abnormal findings (principal); R63.4 Abnormal weight loss; R10.9 Unspecified abdominal pain; E55.9 Vitamin D deficiency, unspecified; R19.7 Diarrhea, unspecified; R74.8 Abnormal levels of other serum enzymes; K58.0 Irritable bowel syndrome with diarrhea; R53.83 Other fatigue; R41.89 Other symptoms and signs involving cognitive functions and awareness; R00.0 Tachycardia, unspecified; Z01.84 Encounter for antibody response examination
CPT/HCPCS: 36415; 80076; 81001; 82306; 82607; 82746; 82784; 82947; 83690; 84443; 85025; 86364; 86617; 86618; 87086; 99212

== ENCOUNTER 2025-05-15 13:15 | Outpatient (AMB) | payer OTHER, SELFPAY ==
--- NOTE | 2025-05-15 13:22 | A.OFFVIS_ITS ---
Vital Signs 05/15/25 13:23 Height 5 ft 5 in Weight 100 lb BMI 16.6 BP 122/74 Blood Pressure Location Rt brachial Position Sitting Pulse 106 H Pulse Source Pulse Oximeter Pulse Oximetry (%) 96 Oxygen Delivery Method Room Air Intake Visit Reasons: s/p double Armijo Intake Note: Est pt for mgmt of GERD. S/P Double. CC; C.O. continued weight loss. Pt states that she is still following low FODMAP diet which does help control the GERD sx. However, she feels incredibly limited with what foods she can eat. Social Sciences Department Chair Required: No Accompanied by: Self / Same As Patient Allergies egg Allergy (Severe, Verified 05/21/25 10:19) GI problems sunflower seed Allergy (Severe, Verified 05/21/25 10:19) Anaphylaxis HPI HPI s/p double Armijo: Details: LAST VISIT: Elevated liver enzymes Chronic diarrhea IBS (irritable bowel syndrome) Encounter for colorectal cancer screening Plan Patient denies any cardiac or respiratory symptoms.? Patient will continue low FODMAP diet. Will continue avoiding gluten and lactose as she has in the past. Will check transglutaminase, fecal calprotectin to rule out IBD, vitamin-D, B12, folate, thyroid and liver panel. Denies any issues with anesthesia in the past.? Denies any history of sleep apnea.? No history infectious diseases in the past or present.? Not on any anticoagulation therapy.? No family or personal history of colon cancer or polyps.? Patient denies melena, hematochezia, unintentional weight loss or ribbon like stools.? Discussed at length the pre-procedure,? prep, diet & medications as well as what to expect prior, during and after the procedure.?? Stressed the importance of good bowel prep.? Recommended the use of Vaseline or Calmoseptine OTC & baby wipes with bowel movements to promote comfort.? ?Patient verbalizes understanding and agrees to plan of care.? She was given the opportunity to ask questions and all questions answered.? We will see her after the procedure.? Orders Transglutaminase Ab IgG Today R10.9 Transglutaminase IgA Today R10.9 Calprotectin, Fecal Today R15.9 Lipase Today R10.9 Vitamin D 25-OH (D2 and D3) Today E55.9 Vitamin B12 and Folate Today R19.7 TSH reflex Free T4 Today K59.00 Liver Panel Today R74.01 New bisacodyl (Dulcolax (bisacodyl)) take 4 tabs at noon the day before your colonoscopy 20 mg (4 x 5 mg) PO ONCE 4 tabs 0RF constipation 1 day Z12.11 polyethylene glycol 3350 (Miralax) As directed by gastroenterology department at [facility] 238 grams PO ONCE 238 grams 0RF Z12.11 UPPER ENDOSCOPY AND COLONOSCOPY Findings: Larynx:normal Esophagus: GE junction at 37 cm, diaphragm hiatus at 40 cm, consistent with 3 cm hiatal hernia, schatzki ring noted as well, mild esophagitis Stomach: Patchy erythema. Biopsies were obtained. Grade 2 flap valve on retroflexed examination of the cardia. 6-7 mm sessile polyp noted in pre antral area and removed with cold snare Duodenum: patchy bulbar duodenitis, bx taken Intervention: Biopsies as noted above, COLONOSCOPY Instrument: Olympus variable stiffness pediatric scope 190L Colonoscopy Monitoring: Vital signs and clinical assessment, continuous EKG monitoring, Pulse oximetry, Carbon Dioxide monitoring and blood pressure monitoring were done throughout the procedure. Colon withdrawal time was 15 minutes. Procedure: The patient was placed in the left lateral decubitis position and pre-procedure medications were administered. After a digital rectal examination of the ano-rectum, the video colonoscope was inserted into the rectum and advanced through the colon to the cecum/TI. The colonoscope was slowly withdrawn in a retrograde panoramic fashion and the colon mucosa was carefully examined including a retroflexed view of the rectum. Findings and interventions are described below. Procedure Difficulty:moderate Findings: Terminal Ileum- slightly atrophic appearing, bx taken Random bx taken from right and left colon Cecum:normal Ascending Colon: 4-5 mm sessile polyp removed with cold forceps Transverse Colon -normal Descending Colon:normal Sigmoid Colon: normal Rectum: Retroflexion with small internal hemorrhoids, grade I, mild erythema in rectum, 6-8 mm sessile polyp removed with cold sanre Anorectum - normal Colon preparation: [place] Bowel Preparation Scale Right colon; 2 Transverse colon: 2 Left colon; 2 (0 = Unprepared colon segment with mucosa not seen due to solid stool that cannot be cleared. 1 = Portion of mucosa of the colon segment seen, but other areas of the colon segment not well seen due to staining, residual stool and/or opaque liquid. 2 = Minor amount of residual staining, small fragments of stool and/or opaque liquid, but mucosa of colon segment seen well. 3 = Entire mucosa of colon segment seen well with no residual staining, small fragments of stool or opaque liquid) Impression and Post Procedure Diagnosis: Endoscopy Findings: hiatal hernia schatzki ring gastritis esophagitis duodenitis Colonoscopy Findings: colon polyps x 2 internal hemorrhoids Plan: Await Pathology results Repeat Colonoscopy in 5 years if adenomatous polyps, 10 yrs if hyperplastic or earlier if clinically indicated High fiber diet leaflet avoid straining at stool, epsom salts and sitz bath, anusol supps or cream if H pylori pos then treat await disaccharidases tissue testing as well PATHOLOGY: Diagnosis A. Duodenum, biopsy: Duodenal mucosa within normal limits. B. Stomach, biopsy: Oxyntic mucosa with mild chronic inactive inflammation; no Helicobacter organisms seen. C. Stomach, polypectomy: Fundic gland polyp with background mild chronic inactive inflammation; no Helicobacter organisms seen. D. Terminal ileum, biopsy: Terminal ileal mucosa within normal limits. E. Colon, right, biopsy: Colonic mucosa within normal limits. F. Colon, ascending, biopsy: Colonic mucosa within normal limits. G. Colon, left, biopsy: Colonic mucosa within normal limits. H. Rectum, polypectomies: Hyperplastic mucosal polyps. I. Rectum, biopsy: Rectal mucosa within normal limits. TODAY'S VISIT: Patient is here today for follow-up and discuss upper endoscopy in colonoscopy results. Both procedure discussed with patient. Patient was found to have a gastritis, duodenitis and esophagitis. She is trying to do diet modification. She knows she is unable to tolerate lactose and other foods sometimes even gluten. She was not diagnosed with celiac, however she did notice that certain food makes her to have diarrhea and cause epigastric pain. Patient is trying to do diet modification as this is working for her better. Patient would rather not take any medication if she does not have to. Patient last couple lb since last visit. Patient contribute is this to being afraid to eat certain food. Patient had normal colonoscopy, 1 hyperplastic mucosal polyp found. Mucosa within normal limits, several areas biopsied due to patient's frequent diarrhea. Negative inflammatory bowel disease study. Most likely her symptoms are related to irritable bowel and dietary triggers. [facility] Medical History Racing heart beat Former smoker IBS (irritable bowel syndrome) Surgical History Normal esophagogastroduodenoscopy (EGD) H/O colonoscopy Family History Father CAD (coronary artery disease) COPD (chronic obstructive pulmonary disease) Type 2 diabetes mellitus Mother Pacemaker Other Diabetes Heart failure Social History Housing: House Alcohol intake: current Alcohol intake frequency: a few times a week Patient Tobacco Use Status: Former Tobacco user Tobacco use type: Cigarette e-Cigarette/Vaping Use: Never Used Second Hand Smoke Exposure: No service: No Current occupational status: employed Current occupational exposures/hazards: No Cognitive needs: No Hearing needs: No Vision needs: No Review of Systems Const Denies weight gain and Reports weight loss ENT Reports no additional complaints, Denies dysphagia and Denies odynophagia Card Reports no additional complaints Resp Reports no additional complaints GI Reports abdominal pain, Denies belching, Denies melena, Reports bloating, Denies change in bowel habits, Denies dysphagia, Denies excessive flatus, Denies dyspepsia, Denies heartburn, Reports diarrhea, Denies loose stools, Denies nausea, Denies odynophagia and Denies vomiting Reports no additional complaints Musc Reports no additional complaints Neuro Reports no additional complaints Psych Reports no additional complaints Endo Reports no additional complaints Physical Exam Vital Signs: Last Vital Signs Pulse 106 H 05/15/25 13:23 BP 122/74 05/15/25 13:23 Pulse Ox 96 05/15/25 13:23 Oxygen Delivery Method Room Air 05/15/25 13:23 BMI result Body Mass Index 16.6 Const General: healthy appearing and no acute distress Nutritional Appearance: underweight Orientation/consciousness: patient oriented x3 Resp Effort & Inspection: normal respiratory effort, able to speak in complete sentences, no tracheal deviation and symmetric chest movement Auscultation: clear to auscultation bilaterally Cardio Rate: regular rate GI Inspection: Yes normal to inspection and No distended Palpation (GI): Soft to palpation, not firm, nontender and No hepatosplenomegaly present Auscultation: normal bowel sounds General: Yes no CVA tenderness Back/Spine/Pelvis Back: no CVA tenderness Skin General skin exam: elasticity normal, turgor normal and dry skin Neuro General: patient oriented x3 Psych Appearance: grossly normal Mental Status: mental status grossly normal Results Reviewed Results Reviewed: Laboratory Tests 03/21/25 03/21/25 10:19 10:45 Stool Lactoferrin <6.25 Tissue Lactase 14.2 L Tissue Maltase 200.2 Tissue Palatinase 19.8 Tissue Sucrase 63.9 C. difficile Tox B Gene NEGATIVE Assessment & Plan Assessment & Plan (1) Heart burn: Code(s): R12 - Heartburn Category: Medical (2) Elevated liver enzymes: Code(s): R74.8 - Abnormal levels of other serum enzymes Category: Medical (3) Fatty liver: Code(s): K76.0 - Fatty (change of) liver, not elsewhere classified Category: Medical (4) Chronic diarrhea: Code(s): K52.9 - Noninfective gastroenteritis and colitis, unspecified Category: Medical (5) IBS (irritable bowel syndrome): Code(s): K58.9 - Irritable bowel syndrome, unspecified Category: Medical Qualifiers: Irritable bowel syndrome type: with diarrhea Qualified Code(s): K58.0 - Irritable bowel syndrome with diarrhea (6) Status post colonoscopy: Code(s): Z98.890 - Other specified postprocedural states Plan Long discussion with patient about dietary triggers and changes. She is afraid to eat. We will refer her to dietitian. Patient had high liver enzymes, she did change her diet and is taking less Tylenol. She does experience migraine headaches and takes Tylenol for that. Significantly lower a month. Patient also decreased alcohol use. Discussed with patient low FODMAP diet. List of food recommended as with list of food to avoid given to patient. High-calorie diet implementation discussed with patient to help her gain weight. She has a follow-up with her PCP next week. I see that there is a repeat for her liver enzymes again. I will see patient in 3 months. We were able to secure appointment for patient for tomorrow with dietitian. Patient was encouraged to keep that appointment. Patient is agreeable to current plan of care and verbalizes understanding of instructions. She was given the opportunity to ask questions and all questions answered. Thank you for allowing me to participate in her care Orders: Referrals Judicial Administrative Assistant Nutrition Referral R63.4 - Abnormal weight loss Coding Level of Care Code Est Pt Level 4 (64516) Complex visit Add On G2211 Diagnoses Heart burn R12 Elevated liver enzymes R74.8 Fatty liver K76.0 Chronic diarrhea K52.9 Irritable bowel syndrome with diarrhea K58.0 Irritable bowel syndrome type: with diarrhea Status post colonoscopy Z98.890 Time Spent (min) 40 Comment 25 minutes spent with patient and additional 15 minutes spent reviewing her records
[2025-05-15 13:23] VITALS: BP 122/74; PULSE 106; O2SAT 96; BMI 16.6
== END 2025-05-15 14:03 | disposition home or self-care (01) ==
LOC: HO.HGI 13:16
PROVIDERS: Visit Provider Nurse Practitioner Family
DX: R12 Heartburn (principal); R74.8 Abnormal levels of other serum enzymes; K76.0 Fatty (change of) liver, not elsewhere classified; K52.9 Noninfective gastroenteritis and colitis, unspecified; K58.0 Irritable bowel syndrome with diarrhea; Z98.890 Other specified postprocedural states
CPT/HCPCS: 99214

== ENCOUNTER 2025-05-16 11:20 | Outpatient (AMB) | payer OTHER, SELFPAY ==
--- NOTE | 2025-05-16 11:42 | MHC.AMNUTRGE ---
VS Expanded 05/16/25 11:46 05/16/25 12:57 Height 5 ft 5 in 5 ft 5 in Weight 100 lb 100 lb BMI 16.6 16.6 Intake Visit Reasons: Abnormal weight loss Allergies egg Allergy (Severe, Verified 05/15/25 13:26) GI problems sunflower seed Allergy (Severe, Verified 05/15/25 13:26) Anaphylaxis Nutrition Presentation Details: Pt presents for MNT for abnormal weight loss Pt reports having had hx of GI symptoms for years, more so since February leading wt loss. Pt reports trying gluten free food options with some improvement and now working on low fodmap food choices. Pt is working with RD from her insurance , working on gluten free low fodmap choices and reports she is calorie counting as well reaching 7153-1440 calories per day. Pt did not bring this record to this appt Pt reports she enjoys cooking/watches multiple cooking prog Noted recorded wt at [facility] in 09/2024 108-110 typical meal smoothies (milk, banana, yogurt) snack: cantaloupe and prosciutto , water lemon bread GF/low fodmap with sorensen 1-2, water dinner: beef, low fodmap sauce and gf pasta BS Monitoring Most Recent Diabetes Results: AST, (5-31) 31 U/L 05/15/25 ALT, (0-31) 20 U/L 05/15/25 Total Protein, (6.5-8.0) 7.9 g/dL 05/15/25 Albumin, (3.5-5.0) 4.3 g/dL 05/15/25 [id number].Jeor Equation Height: 5 ft 5 in Weight: 100 lb Resting Metabolic Rate: 1033.73 Calculated Activity Level: Heavy Activity Calories Needed to Maintain Weight: 1757.34 [facility] Medical History Racing heart beat Former smoker IBS (irritable bowel syndrome) Surgical History Normal esophagogastroduodenoscopy (EGD) H/O colonoscopy Family History Father CAD (coronary artery disease) COPD (chronic obstructive pulmonary disease) Type 2 diabetes mellitus Mother Pacemaker Other Diabetes Heart failure Social History Housing: House Alcohol intake: current Alcohol intake frequency: a few times a week Patient Tobacco Use Status: Former Tobacco user e-Cigarette/Vaping Use: Never Used Second Hand Smoke Exposure: Yes service: No Current occupational status: employed Current occupational exposures/hazards: No Cognitive needs: No Hearing needs: No Vision needs: No Assessment & Plan Assessment & Plan (1) Abnormal weight loss: Code(s): R63.4 - Abnormal weight loss Category: Medical Plan: Pt reports she is tracking her caloric intake and reaches 1750 -1800 calories per day. Today will discuss gradual increase in calorie by 250-500 from protein and low fodmap/GF starches to promote weight gain/prevention of weight current wt: 100 lbs ( /2024 ) est kcal needs as per MSJ: 1750 + 500 = 2250 est protein needs as per 1.5 g/kg BW: 75 est fluid needs as per 32 ml/kg BW: 1600 Recommended fiber > 12 g /day and gradually increase up to 25-28 g /day or as tolerated Nutrition topics discussed : Reviewed (R), Pt verbalized understanding (V) , not applicable (N/A) Reviewed gradually increasing calories from gluten free, low FODMAP food choices (:quinoa , nutritional yeast, oats, poultry, lactose free cottage cheese) -add cranberry juice to current water intake (100 leyda per cup) -try therapy life protein shake: half to 1 a day (75-150 calories) and have it with your snack -add 1-2 oz of protein (lactose free cottage cheese, chicken salad as example) at lunch time - Patient Instructions: Include protein - Coding Level of Care Code Nutr Indiv Intake (35429) Diagnoses Abnormal weight loss R63.4 Time Spent (min) 30
[2025-05-16 11:46] VITALS: BMI 16.6
[2025-05-16 12:57] VITALS: BMI 16.6
== END 2025-05-16 12:27 | disposition home or self-care (01) ==
LOC: HO.ENCR 11:21
PROVIDERS: Visit Provider Dietitian, Registered
DX: R63.4 Abnormal weight loss (principal)

== ENCOUNTER → 2025-05-16 11:20 | Outpatient (BNVA) | payer OTHER, SELFPAY | PROVIDERS: Visit Provider Dietitian, Registered | DX: R63.4 Abnormal weight loss (principal) | CPT/HCPCS: 97802 ==

== ENCOUNTER 2025-05-21 09:54 | Outpatient (AMB) | payer OTHER, SELFPAY ==
--- NOTE | 2025-05-21 09:58 | MHC.PC.OV ---
Vital Signs 05/21/25 09:59 Height 5 ft 5 in Weight 102 lb 8 oz BMI 17.1 BP 120/80 Blood Pressure Location Lt brachial Position Sitting Pulse 106 H Pulse Source Pulse Oximeter Temp 97.3 F Temp Source Temporal Artery Scan Pulse Oximetry (%) 99 Oxygen Delivery Method Room Air Intake Visit Reasons: hlt/IBS/fatty liver Intake Note: Patient is here to follow up on HLD, Elevated liver enzmes. Manager Beauty: Not Required per policy Accompanied by: Self / Same As Patient Allergies egg Allergy (Severe, Verified 05/21/25 10:19) GI problems sunflower seed Allergy (Severe, Verified 05/21/25 10:19) Anaphylaxis Medication List - Last Reconciled 05/21/25 by SOLOMON Mosqueda diltiazem HCl ER 120 mg PO DAILY Tobacco use date assessed: 05/21/25 Dental Screening Dental Screen Date: 05/21/25 Did you have a dental visit in the last 12 months?: Yes Did you have a dental problem in the last 6 months where you did not have access to dental care?: No Was dental information given to patient?: Patient has dentist HPI hlt/IBS/fatty liver HPI Details The patient is a 60-year-old female presenting for a follow-up to review lab results and discuss dietary management. She has been working with a public health advisor and keeping a food log since the beginning of March, with a target of 1750 calories per day. This dietary intervention has led to the resolution of her previous constant, liquid diarrhea, and she now has regular bowel movements. Recent lab work shows her liver enzymes have normalized. Past contributors to elevated liver enzymes may have included frequent Tylenol use for migraines and back pain, alcohol, and fatty foods. She reports her migraines have resolved and she no longer needs Tylenol frequently, and while she still drinks alcohol, it is less often. Her lab results show a high total cholesterol of approximately 207-227, with a high LDL, which is associated with fatty foods. She has been avoiding red meat and fried foods and primarily prepares her own meals. The patient also reports experiencing difficulty breathing and some wheezing when she is active in the cold air, such as when going up and down stairs. She has an inhaler at home which she has used in the past with success. Reports buying this inhaler [id number] and declines an albuterol rescue inhaler order. Patient reports this appointment with previous dermatology visit. She was referred due to recurrent skin starting as small red dots and progressing to red, circular open areas. The patient reports that the wound bed of these areas turn greenish then healed in a month. The facilities and grounds director told the patient that her skin areas are bug bites. The patient completed disagree with their evaluation. She reports that she was given steroid cream that does not work but Vaseline ointment healed the areas well. [facility] Medical History Racing heart beat Former smoker IBS (irritable bowel syndrome) Surgical History Normal esophagogastroduodenoscopy (EGD) H/O colonoscopy Family History Father CAD (coronary artery disease) COPD (chronic obstructive pulmonary disease) Type 2 diabetes mellitus Mother Pacemaker Other Diabetes Heart failure Social History Housing: House Alcohol intake: current Alcohol intake frequency: a few times a week Patient Tobacco Use Status: Former Tobacco user Tobacco use type: Cigarette e-Cigarette/Vaping Use: Never Used Second Hand Smoke Exposure: No service: No Current occupational status: employed Current occupational exposures/hazards: No Cognitive needs: No Hearing needs: No Vision needs: No Questionnaire PHQ-9 Over the last 2 weeks, how often have you been bothered by any of the following problems? 1. Little interest or pleasure in doing things: not at all 2. Feeling down, depressed, or hopeless: not at all 6. Feeling bad about yourself - or that you are a failure or have let yourself or your family down: not at all 8. Moving or speaking so slowly that other people could have noticed. Or the opposite - being so fidgety or restless that you have been moving around a lot more than usual: not at all Source: Developed by Drs. Daniele Bauman, Helene Vargas, Florian Shepard and colleagues, with an educational juan from [employer]. Thrive Questionnaire Date Thrive assessed: 10/01/24 I am a: Patient What is your living situation today?: I have a steady place to live Within the past 12 months, did the food you bought not last and you didn't have the money to get more?: Never true Within the past 12 months, did you worry whether your food would run out before you got money to buy more?: Never true Do you have trouble paying for medicines?: I choose not to answer this question Do you have trouble getting transportation to medical appointments?: No Do you have trouble paying your heating and electricity bill?: No Do you have trouble taking care of your child, family member or friend?: No Do you have trouble with day-to-day activities such as bathing, preparing meals, shopping, managing finances, etc.?: I choose not to answer this question Are you currently unemployed and looking for a job?: No Are you interested in more education?: No Please select the resources that you would like help with: None Currently or been in a relationship where the following occur: No concerns reported THRIVE Score: 0 AUDIT C Alcohol Use Questionnaire (AUDIT-C) 1. How often do you have a drink containing alcohol?: 2-3 times a week 2. How many drinks containing alcohol do you have on a typical day when you are drinking?: 1 or 2 3. How often do you have six or more drinks on one occasion?: Less than monthly Total Score: 4 RONAK-7 AMB Questionnaire RONAK-7 Date RONAK - 7 assessed: 10/01/24 Feeling nervous, anxious, or on edge: 1 = Several days Not being able to stop or control worryin = Several days Worrying too much about different things: 0 = Not at all Trouble relaxin = Several days Being so restless that it is hard to sit still: 0 = Not at all Becoming easily annoyed or irritable: 1 = Several days Feeling afraid as if something awful might happen: 0 = Not at all Total RONAK-7 score (0-4 normal; 5-9 mild; 10-14 moderate; 15-21 severe): 4 Source: Developed by Drs. Daniele Bauman, Helene Vargas, Florian Shepard and colleagues, with an educational juan from [employer]. Review of Systems Const Denies body aches, Denies chills, Denies fever(s), Denies headache(s) and Denies poor appetite Eyes Reports no additional complaints ENT Denies dysphagia, Denies dizziness, Denies headache(s) and Denies odynophagia Card Denies chest pain, Denies syncope, Denies edema, Denies irregular heart rhythm, Denies lightheadedness and Denies dyspnea Resp Denies cough and Denies dyspnea GI Denies abdominal pain, Denies constipation, Denies dysphagia, Reports heartburn (2 times since last visit due to dietary choices), Denies diarrhea, Denies nausea, Denies odynophagia and Denies vomiting Reports no additional complaints Musc Reports no additional complaints and Denies abnormal gait Skin/Breast Reports system reviewed and no additional complaints, except as documented Neuro Denies abnormal gait, Denies dizziness, Denies syncope and Denies headache(s) Psych Reports no additional complaints Physical exam (Primary Care) Vital Signs: Last Vital Signs Temp 97.3 F 05/21/25 09:59 Pulse 106 H 05/21/25 09:59 BP 120/80 05/21/25 09:59 Pulse Ox 99 05/21/25 09:59 Oxygen Delivery Method Room Air 05/21/25 09:59 BMI result Body Mass Index 17.1 Tobacco/Smoking Status: Tobacco use Status Tobacco use date assessed 05/21/25 05/21/25 10:07 Patient Tobacco Use Status Former Tobacco user 05/21/25 10:07 Tobacco use type Cigarette 05/21/25 10:07 e-Cigarette/Vaping Use Never Used 05/21/25 10:07 Thrive Assessment: Date of Thrive Assessment Date Thrive assessed 10/01/24 05/21/25 10:07 Currently or been in a relationship where the following occur: No concerns reported Const General: cooperative, healthy appearing, comfortable and no acute distress Orientation/consciousness: patient oriented x3 HENMT Head: Yes normocephalic Ears: hearing grossly normal bilaterally General nose exam: Normal external nose present Eyes General: appearance normal, both eyes and all related structures Conjunctivae: conjunctivae normal Neck Neck: Yes full ROM and Yes no lymphadenopathy Resp Effort & Inspection: normal respiratory effort Auscultation: clear to auscultation bilaterally, no crackles, no rales, no rhonchi and no wheezes Cardio Rate: regular rate Rhythm: regular rhythm Heart sounds: S1 normal heart sound present, S2 normal heart sound present and no murmurs GI Palpation (GI): Soft to palpation and nontender Auscultation: normal bowel sounds General: Yes no CVA tenderness Back/Spine/Pelvis Back: no CVA tenderness Skin General skin exam: no rashes or lesions noted Neuro General: patient oriented x3 Gait exam (Neuro): Normal gait present Extrem General: Yes normal to inspection, Yes full ROM and No edema Psych Affect: normal affect Attitude: cooperative Insight: Good insight present (Psych) Judgement: Good judgement present (Psych) Results Reviewed Results Reviewed: Laboratory Tests 05/15/25 05/15/25 07:49 08:04 WBC 5.0 RBC 4.79 Hgb 14.5 Hct 44.5 MCV 92.9 MCH 30.3 MCHC 32.6 RDW 12.6 Plt Count 172 D Total Bilirubin 0.8 Direct Bilirubin 0.3 AST 31 ALT 20 Alkaline Phosphatase 62 Total Protein 7.9 Albumin 4.3 Lipase 46 Vitamin B12 559 25-OH Vitamin D Total 92.0 Folate 11.9 TSH 1.01 Urine Color Dark Yellow Urine Appearance Clear Urine pH 6.0 Ur Specific Ferguson 1.020 Urine Protein 100 (2+) H Urine Glucose (UA) Negative Urine Ketones 15 Urine Blood Negative Urine Nitrite Negative Ur Leukocyte Esterase Trace H Urine RBC 0-2 Urine WBC 6-10 H Ur Squamous Epith Cells 3-5 Urine Bacteria None Seen Hyaline Casts 0-2 Coding Level of Care Code Est Pt Level 4 (16862) Diagnoses Heart burn R12 Elevated liver enzymes R74.8 Fatty liver K76.0 Chronic diarrhea K52.9 Irritable bowel syndrome with diarrhea K58.0 Irritable bowel syndrome type: with diarrhea Racing heart beat R00.0 Skin lesion L98.9 Time Spent (min) 37 Assessment & Plan Assessment & Plan (1) Heart burn: Code(s): R12 - Heartburn Category: Medical Plan: Reinforced dietary restriction Continue omeprazole OTC as needed (2) Elevated liver enzymes: Code(s): R74.8 - Abnormal levels of other serum enzymes Category: Medical Plan: Recent labs show her liver enzymes have returned to the normal range. This improvement is likely due to dietary changes and reduced intake of Tylenol and alcohol. She will continue with her current lifestyle modifications. We will repeat CMP three-month (3) Fatty liver: Code(s): K76.0 - Fatty (change of) liver, not elsewhere classified Category: Medical Plan: Abdominal ultrasound on 10/26/2024 showed hepatic steatosis Discussed lifestyle modifications including dietary changes and physical activity (4) Chronic diarrhea: Code(s): K52.9 - Noninfective gastroenteritis and colitis, unspecified Category: Medical Plan: The patient's chronic diarrhea has resolved with dietary modifications. She will continue following the diet recommended by her public health advisor. (5) IBS (irritable bowel syndrome): Code(s): K58.9 - Irritable bowel syndrome, unspecified Category: Medical Qualifiers: Irritable bowel syndrome type: with diarrhea Qualified Code(s): K58.0 - Irritable bowel syndrome with diarrhea Plan: Continue FODMAP diet Follow up with GI as scheduled (6) Racing heart beat: Code(s): R00.0 - Tachycardia, unspecified Category: Medical Plan: Stable. Heart rate 106 in office today-reports that she has not taken medication as yet. Continue diltiazem HCI ER 120 mg daily (7) Skin lesion: Code(s): L98.9 - Disorder of the skin and subcutaneous tissue, unspecified Category: Medical Plan: The patient was seen by Dermatology for recurrent skin sores. The areas were suspected to be bug bites, which the patient does not agree with this conclusion and reports that she will not be following up with this dermatology. Reports that the steroid cream that she was given did not work and she has been healing the areas by herself with Vaseline ointment. No signs of infection that areas at this time. We will continue to monitor. Orders: Orders Comprehensive Howes. Panel Fast 3 Months K58.0 - Irritable bowel syndrome with diarrhea, K76.0 - Fatty (change of) liver, not elsewhere classified, R12 - Heartburn, R53.83 - Other fatigue, R74.8 - Abnormal levels of other serum enzymes Complete Blood Count Auto Diff 3 Months K58.0 - Irritable bowel syndrome with diarrhea, K76.0 - Fatty (change of) liver, not elsewhere classified, R12 - Heartburn, R53.83 - Other fatigue, R74.8 - Abnormal levels of other serum enzymes Lipid Panel 3 Months K58.0 - Irritable bowel syndrome with diarrhea, K76.0 - Fatty (change of) liver, not elsewhere classified, R12 - Heartburn, R53.83 - Other fatigue, R74.8 - Abnormal levels of other serum enzymes TSH reflex Free T4 3 Months K58.0 - Irritable bowel syndrome with diarrhea, K76.0 - Fatty (change of) liver, not elsewhere classified, R12 - Heartburn, R53.83 - Other fatigue, R74.8 - Abnormal levels of other serum enzymes UA CC w/rflx Micro + Cult 3 Months K58.0 - Irritable bowel syndrome with diarrhea, K76.0 - Fatty (change of) liver, not elsewhere classified, R12 - Heartburn, R53.83 - Other fatigue, R74.8 - Abnormal levels of other serum enzymes
[2025-05-21 09:59] VITALS: BP 120/80; PULSE 106; TEMP 36.3; O2SAT 99; BMI 17.1
== END 2025-05-21 10:48 | disposition home or self-care (01) ==
LOC: HO.HMCH 09:55
DX: R12 Heartburn (principal); R74.8 Abnormal levels of other serum enzymes; K76.0 Fatty (change of) liver, not elsewhere classified; K52.9 Noninfective gastroenteritis and colitis, unspecified; K58.0 Irritable bowel syndrome with diarrhea; R00.0 Tachycardia, unspecified; L98.9 Disorder of the skin and subcutaneous tissue, unspecified

== ENCOUNTER → 2025-05-21 09:54 | Outpatient (BNVA) | payer OTHER, SELFPAY | DX: K58.0 Irritable bowel syndrome with diarrhea (principal); R12 Heartburn; R74.8 Abnormal levels of other serum enzymes; K76.0 Fatty (change of) liver, not elsewhere classified; K52.9 Noninfective gastroenteritis and colitis, unspecified; R00.0 Tachycardia, unspecified; L98.9 Disorder of the skin and subcutaneous tissue, unspecified | CPT/HCPCS: 99212 ==